=== PATIENT | male | born 1955 | race Caucasian/White ===

== ENCOUNTER 2019-03-27 08:16 | Emergency (ER) | payer SELFPAY ==
[~2019-03-27] VITALS: Ht 190.5 cm; Wt 113.4 kg
--- OUTSIDE RECORDS SUMMARY | ~2019-03-27 | XMS | Clinical Summary ---
Demographics + + + | Address | [address] | | | [place] [address] | + + + | Home Phone | | + + + | Preferred Language | Unknown | + + + | Marital Status | Unknown | + + + | Gnosticism Affiliation | Unknown | + + + | Race | Unknown | + + + | Ethnic Group | Unknown | + + + Author + + + | Author | [facility] | | | and [place] | + + + | Organization | [facility] | | | and [place] | + + + | Address | Unknown | + + + | Phone | Unavailable | + + + Care Team Providers + +------+ + | Care Software Program Manager Name | Role | Phone | + +------+ + PP | Unavailable | + +------+ + Allergies Not on File Medications Not on file Active Problems Not on file Social History + +-------+ +--------+------+ | Tobacco Use | Types | Packs/Day | Years | Date | | | | | Used | | + +-------+ +--------+------+ | Never Assessed | | | | | + +-------+ +--------+------+ + + + | Sex Assigned at [...] recent travel history available. | + + Plan of Treatment + + + + + | Health Maintenance | Due Date | Last Done | Comments | + + + + + | Vaccine: | | | | | Dtap/Tdap/Td (1 - | 3 | | | | Tdap) | | | | + + + + + | Vaccine: Zoster (1 | | | | | of 2) | 4 | | | + + + + + | Vaccine: Influenza | | | | | (Season Ended) | 9 | | | + + + + + Results Not on filefrom Last 3 Months"
--- OUTSIDE RECORDS SUMMARY | ~2019-03-27 | XMS | Clinical Summary ---
Demographics + + + | Address | [address] | | | [place] [address] | + + + | Home Phone | | + + + | Preferred Language | Unknown | + + + | Marital Status | | + + + | Alevism Affiliation | Unknown | + + + | Race | White | + + + | Ethnic Group | Not or | + + + Author + + + | Author | [facility] | + + + | Organization | [facility] | + + + | Address | Unknown | + + + | Phone | Unavailable | + + + Support + + +---------+ + | Name | Relationship | Address | Phone | + + +---------+ + | Pilar Chatterjee | ECON | Unknown | | + + +---------+ + Care Team Providers + +------+ + | Care Rug Cleaner Name | Role | Phone | + +------+ + | No Pcp Per Patient | PP | Unavailable | + +------+ + Source Comments DIANA is fully live on both [facility] and [facility] Allergies + + + + + + | Active Allergy | Reactions | Severity | Noted | Comments | | | | | Date | | + + + + + + | Penicillins | | | 05/22/20 | | | | | | 08 | | + + + + + + Medications + + + +---------+------+------+-------+ | Medication | Sig | Dispensed | Refills | Star | End | Statu | | | | | | t | Date | s | | | | | | Date | | | + + + +---------+------+------+-------+ | telmisartan | take 1 tablet (40 | | 0 | | | Activ | | (MICARDIS) 40 mg | mg) by oral route | | | | | e | | Oral Tablet | once daily | | | | | | + + + +---------+------+------+-------+ | omeprazole | 1 bid | | 0 | | | Activ | | (PRILOSEC) 20 mg | | | | | | e | | Oral Capsule, | | | | | | | | Delayed | | | | | | | | Release(E.C.) | | | | | | | + + + +---------+------+------+-------+ | ibuprofen (ADVIL) | prn | | 0 | | | Activ | | 200 mg Oral Tablet | | | | | | e | + + + +---------+------+------+-------+ | CLARITIN ORAL | daily | | 0 | | | Activ | | | | | | | | e | + + + +---------+------+------+-------+ | BENADRYL ALLERGY | prn | | 0 | | | Activ | | OR | | | | | | e | + + + +---------+------+------+-------+ | ascorbic acid SR | qd | | 0 | | | Activ | | (VITAMIN C) 1,000 mg | | | | | | e | | Oral Tablet | | | | | | | + + + +---------+------+------+-------+ | Cholecalciferol | qd | | 0 | | | Activ | | (Vitamin D3) | | | | | | e | | (VITAMIN D) 1,000 | | | | | | | | unit Oral Tablet | | | | | | | + + + +---------+------+------+-------+ | Vitamin E 1,000 | qd | | 0 | | | Activ | | unit Oral Tablet | | | | | | e | + + + +---------+------+------+-------+ | [place]-3 Fatty | qd | | 0 | | | Activ | | Acids-Vitamin E | | | | | | e | | (FISH OIL) 1,000 mg | | | | | | | | Oral Capsule | | | | | | | + + + +---------+------+------+-------+ | SUDAFED 12 HOUR | Take 120 mg by mouth | | 0 | | | Activ | | 120 mg Oral Tablet | twice daily as | | | | | e | | Sustained Release | needed for | | | | | | | | congestion. prn | | | | | | + + + +---------+------+------+-------+ Active Problems + + + | Problem | Noted Date | + + + | Benign neoplasm of thyroid gland | 05/22/2008 | + + + + + | Overview: ICD10 | + + Social History + +-------+ +--------+------+ [...] recent travel history available. | + + Last Filed Vital Signs + + + [...] | | + + + + + Plan of Treatment + + + + + | Health Maintenance | Due Date | Last Done | Comments | + + + + + | Influenza (Flu) | | | | | vaccination (Season | 9 | | | | Ended) | | | | + + + + + Results Not on filefrom Last 3 Months Advance Directives + + + + + | Type | Date Recorded | Patient | Explanation | | | | Electron Microscopist | | + + + + + | Advance | | | | | Directives and | | | | | Living Will | | | | + + + + + | Power of | | | | | Duct Maker | | | | + + + + +
--- OUTSIDE RECORDS SUMMARY | ~2019-03-27 | XMS | Encounter Summary ---
Demographics + + + | Address | [address] | | | [place] [address] | + + + | Home Phone | | + + + | Preferred Language | Unknown | + + + | Marital Status | | + + + | Muslim Affiliation | Unknown | + + + | Race | White | + + + | Ethnic Group | Not or | + + + Author + + + | Author | [facility] | + + + | Organization | [facility] | + + + | Address | Unknown | + + + | Phone | Unavailable | + + + Support + + +---------+ + | Name | Relationship | Address | Phone | + + +---------+ + | Pilar Chatterjee | ECON | Unknown | | + + +---------+ + Care Team Providers + +------+ + | Care Cable Wirer Name | Role | Phone | + [...] y | Thyroid | Cesar Soto MD [address] | | | | | nodule | [place] | [address] | | | | | | FAMILY | [facility] | | | | | | MEDICINE P | [address] [place], | | | | | | [address] | [place] | | | | | | [place], | [address] | | | | | | [place] [address] | | +--------+--------+ + + + + [...] Damon | | | | | | [facility] | | | | | | Mailcode: [address]01 | | | | | | Physician's Liz | | | | | | [place], [place] | | | | | | [address] | | | | | | [phone] | | | +--------+---------+ + + + [...] PCP. RTC as needed. Reinaldo Olivas M.D. Salesperson Men'S And Boys' Clothing, Head and Neck Surgery and Oncology [facility] Thyroid and Parathyroid Program Transcribed by: [...]
--- OUTSIDE RECORDS SUMMARY | ~2019-03-27 | XMS | Encounter Summary ---
Demographics + + + | Address | [address] | | | [place] [address] | + + + | Home Phone | | + + + | Preferred Language | Unknown | + + + | Marital Status | | + + + | Islam Affiliation | Unknown | + + + | Race | White | + + + | Ethnic Group | Not or | + + + Author + + + | Author | [facility] | + + + | Organization | [facility] | + + + | Address | Unknown | + + + | Phone | Unavailable | + + + Support + + +---------+ + | Name | Relationship | Address | Phone | + + +---------+ + | Pilar Chatterjee | ECON | Unknown | | + + +---------+ + Care Team Providers + +------+ + | Care Pump Installation And Servicer Name | Role | Phone | + [...] Damon | | | | | | [facility] | | | | | | Mailcode: [address] | | | | | | Physician's Liz | | | | | | [place], [place] | | | | | | [address] | | | | | | [phone] | | | +--------+ + + + [...] | | + +---------+ + + | [facility] DEPARTMENT OF | | | | | RADIOLOGY | | | | + +---------+ + + documented in this encounter Visit Diagnoses Not on filedocumented in this encounter"
--- OUTSIDE RECORDS SUMMARY | ~2019-03-27 | XMS | Encounter Summary ---
Demographics + + + | Address | [address] | | | [place] [address] | + + + | Home Phone | | + + + | Preferred Language | Unknown | + + + | Marital Status | | + + + | Buddhism Affiliation | Unknown | + + + | Race | White | + + + | Ethnic Group | Not or | + + + Author + + + | Author | [facility] | + + + | Organization | [facility] | + + + | Address | Unknown | + + + | Phone | Unavailable | + + + Support + + +---------+ + | Name | Relationship | Address | Phone | + + +---------+ + | Pilar Chatterjee | ECON | Unknown | | + + +---------+ + Care Team Providers + +------+ + | Care Car Starter Name | Role | Phone | + [...] | y | Thyroid | Cesar Soto, [address] | | | | | nodule | [place] | [address] | | | | | | FAMILY | [facility] | | | | | | MEDICINE P | [address] [place], | | | | | | [address] | [place] | | | | | | [place], | [address] | | | | | | [place] [address] | | +--------+--------+ + + + + [...] Damon | | | | | | [facility] | | | | | | Mailcode: [address] | | | | | | Physician's Liz | | | | | | [place] | | | | | | [address] | | | | | | [phone] | | | +--------+---------+ + + + [...] Reinaldo Olivas - 06/13/2008 9:39 PM PDT [id number] 05/22/2008 [id number] ADRI[facility] GAMINO [id number] Clinic Date: 05/22/2008 Clinic: Otolaryngology Referring Physician: [...] has 2 adult children. He works in [employer] and lives in [place]. He is an ex-smoker, quit in 1995. [...] the FNA are available. Reinaldo Olivas M.D. Chimney Mechanic, Head Dept. of Otolaryngology - Head and Neck Surgery [place] / [id number] / [id number] / [id number] / cc: * Dr. Tommie Huertas [address] [facility]. [address] [place] [address] Cesar Dixon D.O. ross, Reinaldo Jorgensen 8 11:16 AM PDTIt was a pleasure for me to see Walter Taylor in consultation today at the [facility] Thyroid and Parathyroid Clinic. The details of [...] US in 6 months. Reinaldo Olivas M.D. Chimney Mechanic, Head and Neck Surgery and Oncology [facility] Thyroid and Parathyroid Program documented in this encounte r Plan of Treatment + + +--------+ + + | Name | Type | Priori | Associated Diagnoses | Order Schedule | | | | ty | | | + + +--------+ + + | [place] LARYNGOSCOPY,FLEX | Procedures | Routin | Benign [...] + +--------+ + + + | NON SLUSHER OPERATOR CYTOLOGY | Routin | 05/22/2008 | | [...] | | + +---------+ + + | [facility] DEPARTMENT OF | | | | | RADIOLOGY | | | | + +---------+ + + NON SLUSHER OPERATOR CYTOLOGY (05/22/2008) + + + + + + | Component | Value | Ref Range | Performed | Pathologist | | | | | At | Signature | + + + + + + | NON-SLUSHER OPERATOR | SOURCE OF SPECIMEN:A | | [facility] | | | CYTOLOGY | Thyroid FNA, [...] | + + + + + | [facility] DEPARTMENT | [address] | [place] [address] | | | PATHOLOGY | LINDA FOX | | | + + + + + | [facility] DEPARTMENT OF | [address] | [place] [address] | | | PATHOLOGY | LINDA FOX | | | + + + + + documented in this encounter Visit Diagnoses + + | Diagnosis | + + | 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
--- OUTSIDE RECORDS SUMMARY | ~2019-03-27 | XMS | Encounter Summary ---
Demographics + + + | Address | [address] | | | [place] [address] | + + + | Home Phone | | + + + | Preferred Language | Unknown | + + + | Marital Status | | + + + | Mosque Affiliation | Unknown | + + + | Race | White | + + + | Ethnic Group | Not or | + + + Author + + + | Author | [facility] | + + + | Organization | [facility] | + + + | Address | Unknown | + + + | Phone | Unavailable | + + + Support + + +---------+ + | Name | Relationship | Address | Phone | + + +---------+ + | Pilar Chatterjee | ECON | Unknown | | + + +---------+ + Care Team Providers + +------+ + | Care Birth Certificate Clerk Name | Role | Phone | + +------+ + | Cesar Dixon | PCP | Unavailable | + +------+ + Reason for Visit + + + | Reason | Comments | + + + | Lab Results | Would like to know the results of biospy | + + + Encounter Details +--------+ + + + + | Date | Type | Department | Care Team | Description | +--------+ + + + + | 05/28/ | Telephone | Otolaryngology | Reinaldo Olivas MD | Lab Results (Would | | 2007 | | Head and Neck | | like to know the | | | | Surgery Services at | | results of biospy) | | | | [facility] [address] | | | | | | [facility] | | | | | | Mailcode: [address] | | | | | | Physician's Nateilitaniya | | | | | | [place], [place] | | | | | | [address] | | | | | | [phone] | | | +--------+ + + + [...] filedocumented as of this encounter Visit Diagnoses Not on filedocumented in this encounter"
--- OUTSIDE RECORDS SUMMARY | ~2019-03-27 | XMS | Encounter Summary ---
Demographics + + + | Address | [address] | | | [place] [address] | + + + | Home Phone [...] Team Providers + +------+ + | Care Leadership Program Associate Name | Role | Phone | + [...] Damon | | | | | | [facility] | | | | | | Mailcode: [address] | | | | | | Physician's Nateilitaniya | | | | | | [place], [place] | | | | | | [address] | | | | | | [phone] | | | +--------+ + + + [...]
--- OUTSIDE RECORDS SUMMARY | ~2019-03-27 | XMS | Encounter Summary ---
Demographics + + + | Address | [address] | | | [place] [address] | + + + | Home Phone | | + + + | Preferred Language | Unknown | + + + | Marital Status | | + + + | Moravian Affiliation | Unknown | + + + [...] Team Providers + +------+ + | Care Retread Mold Operator Name | Role | Phone | [...] y | Thyroid | Cesar Soto MD [address] | | | | | nodule | [place] | [address] | | | | | | FAMILY | [facility] | | | | | | MEDICINE P | [address] [place], | | | | | | [address] | [place] | | | | | | [place], | [address] | | | | | | [place] [address] | | +--------+--------+ + + + + [...] Liz | | | | | | [place], [place] | | | | | | [address] | | | | | | [phone] | | | +--------+---------+ + + + [...] PCP. RTC as needed. Reinaldo Olivas M.D. Sugar Trucker, Head and Neck Surgery and Oncology [facility] Thyroid and Parathyroid Program Transcribed by: Alexa [...]
--- OUTSIDE RECORDS SUMMARY | ~2019-03-27 | XMS | Encounter Summary ---
Demographics + + + | Address | [address] | | | [place] [address] | + + + | Home Phone | | + + + | Preferred Language | Unknown | + + + | Marital Status | | + + + | Druze Affiliation | Unknown | + + + | Race | White | + + + | Ethnic Group | Not or | + + + Author + + + | Author | [facility] | + + + | Organization | [facility] | + + + | Address | Unknown | + + + | Phone | Unavailable | + + + Support + + +---------+ + | Name | Relationship | Address | Phone | + + +---------+ + | Pilar Chatterjee | ECON | Unknown | | + + +---------+ + Care Team Providers + +------+ + | Care Certified Coding Specialist Name | Role | Phone | + +------+ + | No Pcp Per Patient | PCP | Unavailable | + +------+ + Encounter Details +--------+ + + + + | Date | Type | Department | Care Team | Description | +--------+ + + + + | 05/22/ | Document-Sc | UNKNOWN DEPARTMENT | Radiologist, | | | 2007 | anned | [address] [facility] | [facility] | | | | | [facility] | | | | | | [place], [place] | | | | | | [address] | | | +--------+ + + + [...]
--- OUTSIDE RECORDS SUMMARY | ~2019-03-27 | XMS | Encounter Summary ---
Demographics + + + | Address | [address] | | | [place] [address] | + + + | Home Phone | | + + + | Preferred Language | Unknown | + + + | Marital Status | | + + + | Zoroastrian Affiliation | Unknown | + + + [...] Team Providers + +------+ + | Care Life Science Taxonomist Name | Role | Phone | + [...] | y | Thyroid | Cesar Soto, [address] | | | | | nodule | [place] | [address] | | | | | | FAMILY | [facility] | | | | | | MEDICINE P | [address] [place], | | | | | | [address] | [place] | | | | | | [place], | [address] | | | | | | [place] [address] | | +--------+--------+ + + + + [...] Damon | | | | | | [facility] | | | | | | Mailcode: [address] | | | | | | Physician's Liz | | | | | | [place] | | | | | | [address] | | | | | | [phone] | | | +--------+---------+ + + + [...] Reinaldo Olivas - 06/13/2008 9:39 PM PDT [id number] 05/22/2008 [id number] ADRI[facility]N GAMINO [id number] Clinic Date: 05/22/2008 Clinic: Otolaryngology Referring Physician: [...] has 2 adult children. He works in [employer] and lives in [place]. He is an ex-smoker, quit in 1995. [...] the FNA are available. Reinaldo Olivas M.D. Inside Finisher, Head Dept. of Otolaryngology - Head and Neck Surgery [place] / [id number] / [id number] / [id number] / cc: * Dr. Tommie Huertas [address] [facility]. [address] [place] [address] Cesar Dixon D.O. ross, Reinaldo Jorgensen 8 11:16 AM PDTIt was a pleasure for me to see Walter Taylor in consultation today at the [facility] Thyroid and Parathyroid Clinic. The details of [...] US in 6 months. Reinaldo Olivas M.D. Inside Finisher, Head and Neck Surgery and Oncology [facility] Thyroid and Parathyroid Program documented in this encounte r Plan of Treatment + + +--------+ + + | Name | Type | Priori | Associated Diagnoses | Order Schedule | | | | ty | | | + + +--------+ + + | [place] LARYNGOSCOPY,FLEX | Procedures | Routin | Benign [...] + +--------+ + + + | NON SLAB GRINDER CYTOLOGY | Routin | 05/22/2008 | | [...] | | + +---------+ + + | [facility] DEPARTMENT OF | | | | | RADIOLOGY | | | | + +---------+ + + NON SLAB GRINDER CYTOLOGY (05/22/2008) + + + + + + | Component | Value | Ref Range | Performed | Pathologist | | | | | At | Signature | + + + + + + | NON-SLAB GRINDER | SOURCE OF SPECIMEN:A | | [facility] | | | CYTOLOGY | Thyroid FNA, [...] | + + + + + | [facility] DEPARTMENT | [address] | [place] [address] | | | PATHOLOGY | LINDA FOX | | | + + + + + | [facility] DEPARTMENT OF | [address] | [place] [address] | | | PATHOLOGY | LINDA FOX | | | + + + + + documented in this encounter Visit Diagnoses + + | Diagnosis | + + | 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
--- OUTSIDE RECORDS SUMMARY | ~2019-03-27 | XMS | Encounter Summary ---
Demographics + + + | Address | [address] | | | [place] [address] | + + + | Home Phone | | + + + | Preferred Language | Unknown | + + + | Marital Status | | + + + | Congregation Affiliation | Unknown | + + + [...] Team Providers + +------+ + | Care Washer Machine Name | Role | Phone | + [...] Damon | | | | | | [facility] | | | | | | Mailcode: PV[address] | | | | | | Physician's Liz | | | | | | [place], [place] | | | | | | [address] | | | | | | [phone] | | | +--------+ + + + [...]
--- OUTSIDE RECORDS SUMMARY | ~2019-03-27 | XMS | Clinical Summary ---
Demographics + + + | Address | [address] | | | [place] [address] | + + + | Home Phone | | + + + | Preferred Language | Unknown | + + + | Marital Status | | + + + | Catholic Affiliation | 1013 | + + + | Race | Unknown | + + + | Ethnic Group | Unknown | + + + Author + + + | Author | [facility] | + + + | Organization | [facility] | + + + | Address | Unknown | + + + | Phone | Unavailable | + + + Support + + + + + | Name | Relationship | Address | Phone | + + + + + | Aleshia Sampson | ECON | [address] | | | | | [place] | | | | | [address] | | + + + + + Care Team Providers + +------+ + | Care Orthopedic Designer Name | Role | Phone | + [...] | [facility] | [facility]DS | [id number] | | | | | | HEALTH [...] | [place] | | | [address] | [address] | + +--------+ +--------+ + +
--- OUTSIDE RECORDS SUMMARY | ~2019-03-27 | XMS | Encounter Summary ---
Demographics + + + | Address | [address] | | | [place] [address] | + + + | Home Phone | | + + + | Preferred Language | Unknown | + + + | Marital Status | | + + + | Alevism Affiliation | Unknown | + + + | Race | White | + + + | Ethnic Group | Not or | + + + Author + + + | Author | [facility] | + + + | Organization | [facility] | + + + | Address | Unknown | + + + | Phone | Unavailable | + + + Support + + +---------+ + | Name | Relationship | Address | Phone | + + +---------+ + | Pilar Chatterjee | ECON | Unknown | | + + +---------+ + Care Team Providers + +------+ + | Care Teletypesetter Name | Role | Phone | + [...] + + + + | 04/28/ | Deputy Sheriff Generalist/Bailiff | Otolaryngology | Reinaldo Olivas MD | Nontoxic Uninodular | | 2007 | | Head and Neck | | Goiter (Primary Dx) | | | | Surgery Services at | | | | | | [facility] [address] | | | | | | [facility] | | | | | | Mailcode: [address] | | | | | | [place] | | | | | | [place], [place] | | | | | | [address] | | | | | | [phone] | | | +--------+ + + + [...] | | + +---------+ + + | [facility] DEPARTMENT OF | | | | | RADIOLOGY | | | | + +---------+ + + [facility], THYROID FNA (05/22/2008 8:37 [...] | | + +---------+ + + | [facility] DEPARTMENT OF | | | | | RADIOLOGY | | | | + +---------+ + + documented in this encounter Visit Diagnoses + + | Diagnosis | + + | Nontoxic uninodular goiter - Primary | + + documented in this encounter"
--- OUTSIDE RECORDS SUMMARY | ~2019-03-27 | XMS | Encounter Summary ---
Demographics + + + | Address | [address] | | | [place] [address] | + + + | Home Phone | | + + + | Preferred Language | Unknown | + + + | Marital Status | | + + + | Oriental Orthodox Affiliation | Unknown | + + + | Race | White | + + + | Ethnic Group | Not or | + + + Author + + + | Author | [facility] | + + + | Organization | [facility] | + + + | Address | Unknown | + + + | Phone | Unavailable | + + + Support + + +---------+ + | Name | Relationship | Address | Phone | + + +---------+ + | Pilar Chatterjee | ECON | Unknown | | + + +---------+ + Care Team Providers + +------+ + | Care Receptionist Scheduler Name | Role | Phone | + +------+ + | No Pcp Per Patient | PCP | Unavailable | + +------+ + Encounter Details +--------+ + + + + | Date | Type | Department | Care Team | Description | +--------+ + + + + | 05/22/ | Document-Sc | UNKNOWN DEPARTMENT | Radiologist, | | | 2007 | anned | [address] [facility] | [facility] | | | | | [facility] | | | | | | [place], [place] | | | | | | [address] | | | +--------+ + + + [...]
--- OUTSIDE RECORDS SUMMARY | ~2019-03-27 | XMS | Clinical Summary ---
Demographics + + + | Address | [address] | | | [place] [address] | + + + | Home Phone | | + + + | Preferred Language | Unknown | + + + | Marital Status | | + + + | Orthodox Affiliation | 1013 | + + + | Race | Unknown | + + + | Ethnic Group | Unknown | + + + Author + + + | Author | [facility] | + + + | Organization | [facility] | + + + | Address | Unknown | + + + | Phone | Unavailable | + + + Support + + + + + | Name | Relationship | Address | Phone | + + + + + | Aleshia Sampson | ECON | [address] | | | | | [place] | | | | | [address] | | + + + + + Care Team Providers + +------+ + | Care Crm Developer Name | Role | Phone | + [...] | [employer] | [facility] | [id number] | | | | | | HEALTH [...] | [place] | | | [address] | [address] | + +--------+ +--------+ + +
--- OUTSIDE RECORDS SUMMARY | ~2019-03-27 | XMS | Encounter Summary ---
Demographics + + + | Address | [address] | | | [place] [address] | + + + | Home Phone | | + + + | Preferred Language | Unknown | + + + | Marital Status | | + + + | Zoroastrianism Affiliation | Unknown | + + + | Race | White | + + + | Ethnic Group | Not or | + + + Author + + + | Author | [facility] | + + + | Organization | [facility] | + + + | Address | Unknown | + + + | Phone | Unavailable | + + + Support + + +---------+ + | Name | Relationship | Address | Phone | + + +---------+ + | Pilar Chatterjee | ECON | Unknown | | + + +---------+ + Care Team Providers + +------+ + | Care Vendor Analyst Name | Role | Phone | [...] + + + + | 04/28/ | Customer Service Advisor | Otolaryngology | Reinaldo Olivas MD | Nontoxic Uninodular | | 2007 | | Head and Neck | | Goiter (Primary Dx) | | | | Surgery Services at | | | | | | [facility] [address] | | | | | | [facility] | | | | | | Mailcode: PV01 | | | | | | [place] | | | | | | [place], [place] | | | | | | [address] | | | | | | [phone] | | | +--------+ + + + [...] | | + +---------+ + + | [facility] DEPARTMENT OF | | | | [...] | | + +---------+ + + | [facility] DEPARTMENT OF | | | | | RADIOLOGY | | | | + +---------+ + + documented in this encounter Visit Diagnoses + + | Diagnosis | + + | Nontoxic uninodular goiter - Primary | + + documented in this encounter"
--- OUTSIDE RECORDS SUMMARY | ~2019-03-27 | XMS | Clinical Summary ---
Demographics + + + | Address | [address] | | | [place] [address] | + + + | Home Phone | | + + + | Preferred Language | Unknown | + + + | Marital Status | | + + + | Church Affiliation | Unknown | + + + [...] Team Providers + +------+ + | Care Soaking Tank Worker Name | Role | Phone | + +------+ + | No Pcp Per Patient | PP | Unavailable | + +------+ + Source Comments DIANA is fully live on both [facility] and [facility] InPatient.[facility] Allergies + + + + + + [...] e | + + + +---------+------+------+-------+ | [place]-3 Fatty | qd | | 0 | [...] Patient | 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
--- OUTSIDE RECORDS SUMMARY | ~2019-03-27 | XMS | Clinical Summary ---
Demographics + + + | Address | [address] | | | [place] [address] | + + + | Home Phone | | + + + | Preferred Language | Unknown | + + + | Marital Status | Unknown | + + + | Muslim Affiliation | Unknown | + + + | Race | Unknown | + + + | Ethnic Group | Unknown | + + + Author + + + | Author | [facility] | | | and [place] | + + + | Organization | [facility] | | | and [place] | + + + | Address | Unknown | + + + | Phone | Unavailable | + + + Care Team Providers + +------+ + | Care Filtration Plant Operator Name | Role | Phone | [...]
[~2019-03-27 08:16] MED LIST: AMPHETAMINE SAL20 MG PO; ASPIR-TRIN325 MG PO; BACTRIM DS TAB1 EACH PO; CLARITIN-D 121 EACH PO; FISH OIL 1,0001 EAC2 NG; IBUPROFEN200 MG PO; KEFLEX500 MG PO; NORCO 5-325 TA1 EACH PO; PROMETH-CODEIN 65 ML PO; TESSALON PERLE100 MG PO; VITAMIN D5000 UNIT PO
--- OUTSIDE RECORDS SUMMARY | 2019-03-27 08:20 | XMS ---
PreManage Notification: HANNY SAMPSON Security Spring Repairer Helper Hand Events No recent Security Events currently on file CRITERIA MET - PDMP CARE PROVIDERS Damion Ling Current PHONE: Unknown Paula has no Care Guidelines for this patient. ECherelle VISIT COUNT (12 MO.) 1 LALO Taylor TOTAL 1 NOTE: Visits indicate total known visits. ED/UCC VISIT TRACKING (12 MO.) 03/27/2019 08:17 [place] TYPE: Emergency COMPLAINT: - ABDOMINAL PAIN INPATIENT VISIT TRACKING (12 MO.) No inpatient visits to display in this time frame [id number]
[2019-03-27] MEDS ORDERED: MAGNESIUM CITR296 ML PO (09:44)
== END 2019-03-27 09:53 | disposition home or self-care (01) ==
LOC: ED 08:16
DX: K59.00 Constipation, unspecified (principal); F43.10 Post-traumatic stress disorder, unspecified; Z87.891 Personal history of nicotine dependence; Z88.0 Allergy status to penicillin; Z79.899 Other long term (current) drug therapy
CPT/HCPCS: 74019; 99283

== ENCOUNTER 2019-03-29 20:30 | Inpatient (IN) | payer SELFPAY ==
[~2019-03-29] VITALS: Ht 190.5 cm; Wt 109.0 kg
--- NOTE | ~2019-03-29 | DS ---
[facility] [address], [place] [address] Draft ADMISSION DATE: 03/30/2019 DISCHARGE DATE: 04/02/2019 REASON FOR ADMISSION: This 63-year-old white man had been admitted for diverticulitis with a peridiverticular fluid collection suggestive of abscess. HISTORY: This 63-year-old white man had two weeks of lower abdominal pain, worsening and with increasingly poor oral intake. He presented to Dr. Wang, his primary physician who had him undergo CBC. This showed an elevated white count of 15.1. He had a CT scan of the abdomen after presentation in the emergency room, which showed a severely inflamed rectosigmoid area, likely related to perforated diverticulitis, which was contained. He was admitted for further evaluation and care. PERTINENT PHYSICAL EXAMINATION: GENERAL: Shows a large tall white man, noted to be in [id number] discomfort. HEENT: Mucous membranes are dry. CHEST: Clear. HEART: Regular without murmur. ABDOMEN: Slightly distended, but generally soft. He does not have generalized peritonitis. There is mild tenderness in the lower abdomen. LABORATORY DATA: White count was 15.1, hematocrit 44.4, platelets 195,000. Chem profile normal. Liver enzymes normal. Urinalysis normal. His influenza test was normal. HOSPITAL COURSE: Review of his CT scan showed a diverticular fluid collection suggestive of abscess. As it was small, less than 6 cm in greatest dimension, a trial of antibiotic therapy was initiated. This included broad-spectrum antibiotic meropenem. He had rather prompt recovery with maintaining n.p.o., IV fluids, antibiotics and parenteral pain medication. He was advanced to a liquid diet, a full diet, and ultimately a low-fiber regular diet, which he has tolerated well. At this point, palpation shows no sign of tenderness. He has no fever, no chills. It is anticipated, he will be discharged home with a week of Cipro and Flagyl antibiotic, which he was transitioned to while in the hospital. He will maintain a low-fiber diet as well. PATIENT NAME: HANNY SAMPSON DISCHARGE SUMMARY DATE OF : 53 REPORT #: [id number] PHYSICIAN: GERONIMO RAM MD PCP: AVA WANG MD REPORT IS CONFIDENTIAL AND NOT TO BE RELEASED WITHOUT AUTHORIZATION [facility] [address] [place], [place] [address] Draft We will see him back in about a month. In due course, he will require consideration for repeat CT scan to assess complete resolution of the peridiverticular fluid collection as well as consideration of colonoscopy. In his circumstance, a sigmoid resection may be advisable given the extent of his diverticular disease now manifesting as peridiverticular abscess. We will discuss this further in the future. DISCHARGE DIAGNOSES: 1. Severe acute diverticulitis with peridiverticular fluid collection, probable abscess. 2. Seasonal allergies. FOLLOWUP PLAN: He will return in approximately a week. He will follow up with Dr. Wang on a routine basis. DISCHARGE MEDICATIONS: 1. Ciprofloxacin 500 mg p.o. b.i.d. #14. 2. Flagyl 250 mg p.o. t.i.d. #21. 3. Loratadine, Claritin-D 1 tab as needed for allergy symptoms. 4. Tylenol 325 mg two tablets p.o. q.6 hours as needed for pain. He will resume his usual 5000 units of vitamin D tablet daily. MD JERED Siddiqui/MODL /[id number] cc: MD Mahad Camahco MD Copies: AVA WANG MD PATIENT NAME: HANNY SAMPSON DISCHARGE SUMMARY DATE OF : 53 REPORT #: [id number] PHYSICIAN: GERONIMO RAM MD PCP: AVA WANG MD REPORT IS CONFIDENTIAL AND NOT TO BE RELEASED WITHOUT AUTHORIZATION [facility] [address] [place] [address] Draft MAHAD CONLEY MD ~ PATIENT NAME: HANNY SAMPSON DISCHARGE SUMMARY DATE OF : 53 REPORT #: [id number] PHYSICIAN: GERONIMO RAM MD PCP: AVA WANG MD REPORT IS CONFIDENTIAL AND NOT TO BE RELEASED WITHOUT AUTHORIZATION
--- OUTSIDE RECORDS SUMMARY | ~2019-03-29 | XMS | Encounter Summary ---
Demographics + + + | Address | [address] | | | [place] [address] | + + + | Home Phone | | + + + | Preferred Language | Unknown | + + + | Marital Status | | + + + | Roman Catholic Affiliation | Unknown | + + + | Race | White | + + + | Ethnic Group | Not or | + + + Author + + + | Author | [facility] | + + + | Organization | [facility] | + + + | Address | Unknown | + + + | Phone | Unavailable | + + + Support + + +---------+ + | Name | Relationship | Address | Phone | + + +---------+ + | Pilar Chatterjee | ECON | Unknown | | + + +---------+ + Care Team Providers + +------+ + | Care Swimming Pool Service Technician Name | Role | Phone | + +------+ + | Cesar Dixon | PCP | Unavailable | + +------+ + Reason for Visit + + + | Reason | Comments | + + + | New patient | thyroid | | consultation | | + + + Consultation (Routine) +--------+--------+ + + + + | Status | Reason | Specialty | Diagnoses / | Referred By | Referred To | | | | | Procedures | Contact | Contact | +--------+--------+ + + + + | Closed | | Otolaryngolog | Diagnoses | Zack, | Reinaldo Olivas | | | | y | Thyroid | Cesar Soto, [address] | | | | | nodule | [place] | [address] | | | | | | FAMILY | [facility] | | | | | | MEDICINE [address] | [address] [place], | | | | | | [address] | [place] | | | | | | [place], | [address] | | | | | | [place] [address] | | +--------+--------+ + + + + Encounter Details +--------+---------+ + + + | Date | Type | Department | Care Team | Description | +--------+---------+ + + + | 05/22/ | Office | Otolaryngology | Reinaldo Olivas MD | Benign Neoplasm of | | 2007 | Visit | Head and Neck | | Thyroid Glands | | | | Surgery Services at | | (Primary Dx) | | | | [facility] [address] | | | | | | [facility] | | | | | | Mailcode: [address] | | | | | | Physician's Liz | | | | | | [place] | | | | | | [address] | | | | | | [phone] | | | +--------+---------+ + + + Social History + +-------+ +--------+------+ | Tobacco Use | Types | Packs/Day | Years | Date | | | | | Used | | + +-------+ +--------+------+ | Former Smoker | | | | | + +-------+ +--------+------+ + + | Comments: 1996 | + + + + +---------+ + | Alcohol Use | Drinks/Week | oz/Week | Comments | + + +---------+ + | Yes | | | | + + +---------+ + + + + | Sex Assigned at | Date Recorded | | | | + + + | Not on file | | + + + + + + + | Job Start Date | Occupation | Industry | + + + + | Not on file | Not on file | Not on file | + + + + + + + + | Travel History | Travel Start | Travel End | + + + + + + | No recent travel history available. | + + documented as of this encounter Last Filed Vital Signs + + + + + | Vital Sign | Reading | Time Taken | Comments | + + + + + | Blood Pressure | - | - | | + + + + + | Pulse | - | - | | + + + + + | Temperature | - | - | | + + + + + | Respiratory Rate | - | - | | + + + + + | Oxygen Saturation | - | - | | + + + + + | Inhaled Oxygen | - | - | | | Concentration | | | | + + + + + | Weight | 115.7 kg (255 lb) | 05/22/2008 10:20 AM | | | | | PDT | | + + + + + | Height | 190.5 cm (6' 3") | 05/22/2008 10:20 AM | | | | | PDT | | + + + + + | Body Mass Index | 31.87 | 05/22/2008 10:20 AM | | | | | PDT | | + + + + + documented in this encounter Progress Notes Reinaldo Olivas - 06/13/2008 9:39 PM PDT [id number] 05/22/2008 [id number] ADRIÁN GAMINO [id number] Clinic Date: 05/22/2008 Clinic: Otolaryngology Referring Physician: Cesar Dixon D.O. NEW PATIENT CONSULT NOTE Chief Complaint: Thyroid nodule. History of Present Illness: Mr. Taylor is a 52-year-old gentleman with a history of gastroesophageal reflux disease and seasonal allergies with chronic sinusitis who comes in for evaluation of an incidentally identified left-sided thyroid nodule. The patient was being followed by a general surgeon who palpated a thyroid nodule during a routine examination for followup of gastroesophageal reflux disease. This prompted an ultrasound examination which identified a right-sided 1.7 cm nodule. Smaller 5 mm nodules were noted on the left-hand side. Subsequent CT scan was performed and confirmed the presence and identified the nodule on the left-hand side. Addendum: Ultrasound report indeed confirmed that the nodule is on the left. The patient has otherwise been asymptomatic. He denies any dysphagia or odynophagia. He has had no changes in his voice. He has had no weight loss and denies any other signs or stigmata of hyper or hypothyroidism. Thyroid function studies were tested and were within the normal range. He was advised hemithyroidectomy and possible total thyroidectomy depending on frozen section results but comes here to discuss further his options. There is no family history of endocrinopathy or thyroid cancer. He denies any family history of head and neck cancer. He denies any personal exposure to radiation. Past Medical History: Significant for gastroesophageal reflux disease, hypertension, seasonal allergies, and sleep apnea. Past Surgical History: Appendectomy, carpal tunnel surgery, and tonsillectomy. Current Medications: Listed on new patient intake form in the electronic medical record and were reviewed. Allergies: HE REPORTS A SENSITIVITY TO PENICILLIN. Social: The patient is . He has 2 adult children. He works in [employer] and lives in [place]. He is an ex-smoker, quit in 1995. He drinks alcoholic beverages socially on occasion. He is active and has no functional limitations. Family History: Positive for asthma and a goiter but negative for thyroid cancer or other head and neck cancer. Review of Systems: Reviewed on the new patient intake questionnaire form and was positive for cough, snoring, daytime sleepiness, neck stiffness, hearing loss, and nasal congestion. Physical Examination: Vital Signs: Recorded on the new patient intake form and were reviewed. His weight is 255 pounds. General: He is pleasant, conversant, nontoxic appearing. The patient's scalp reveals no asymmetries nor suspicious cutaneous lesions. Parotids are symmetric. Facial nerve mobility is normal. Eyes: No chemosis. No proptosis. Pupils are equal and reactive. Extraocular movements are intact. Nose: No external nasal deformity. No mucosal lesions, polyps, or masses. Mouth: No buccal, lingual, or gingival lesions. Posterior oropharynx is clear. Teeth are in good condition. Neck: No adenopathy, thyromegaly, or masses. I am unable to palpate thyroid nodule. Ears: External canals and pinnae are unremarkable. Cranial Nerve exam 2 through 12 is intact. Procedure: Nasopharyngoscopy was performed after the administration of topical lidocaine and Afrin nasal spray. The posterior nasopharynx, hypopharynx, and larynx were well visualized. Vocal cords were symmetric and moved equally. No glottic or supraglottic lesions appreciated. Ancillary Studies: The patient brings with him today a CT scan of the neck. The hard copy images are available for my review. This study was performed 04/11/2008. On my interpretation of the study, there is a 1.5 cm heterogeneous-appearing nodule in the left posterior portion of the thyroid. There are no internal calcifications identified. There are no other thyroid masses and no cervical adenopathy identified. The remainder of the examination is unremarkable. The patient did undergo today ultrasound-guided fine-needle aspirate biopsy. The results of this are pending. Impression: Left-sided thyroid nodule. Statistically, this is likely benign. He did undergo today an ultrasound-guided fine-needle aspirate biopsy to confirm this. I had a lengthy discussion today with the patient and his sister regarding my findings and recommendations. I have recommended if it indeed is benign, serial observation with ultrasound in 6 months and again in 1 year. If it is suspicious or malignant, then I would recommend further more aggressive workup or management. I will call the patient when the results of the FNA are available. Reinaldo Olivas M.D. Wax Pattern Repairer, Head Dept. of Otolaryngology - Head and Neck Surgery [place] / [id number] / [id number] / [id number] / cc: * Dr. Tommie Huertas [address] [facility] [place] [address] Cesar Dixon D.O. ross, Reinaldo Jorgensen 8 11:16 AM PDTIt was a pleasure for me to see Walter Taylor in consultation today at the [facility]. The details of my findings and recommendat ions are summarized in a separately dictated note. In brief, he appears to have a left-side d thyroid nodule. I have advised US-guided FNA which is scheduled for later today. I will call him with the results to discuss further management as needed. We will tenatively sched kendal follow-up US in 6 months. Reinaldo Olivas M.D. Wax Pattern Repairer, Head and Neck Surgery and Oncology [facility] Thyroid and Parathyroid Program documented in this encounte r Plan of Treatment + + +--------+ + + | Name | Type | Priori | Associated Diagnoses | Order Schedule | | | | ty | | | + + +--------+ + + | FL LARYNGOSCOPY,FLEX | Procedures | Routin | Benign Neoplasm of | Ordered: 05/22/2008 | | FIBER,DIAGNOSTIC | | e | Thyroid Glands | | + + +--------+ + + documented as of this encounter Procedures + +--------+ + + + | Procedure Name | Priori | Date/Time | Associated Diagnosis | Comments | | | ty | | | | + +--------+ + + + | US SOFT TISSUE HEAD | Routin | 12/16/2008 | Benign Neoplasm of | Results for this | | & NECK | e | 10:49 AM | Thyroid Glands | procedure are in the | | | | PST | | results section. | + +--------+ + + + | NON BOARD LAYER CYTOLOGY | Routin | 05/22/2008 | | Results for this | | | e | | | procedure are in the | | | | | | results section. | + +--------+ + + + documented in this encounter Results US SOFT TISSUE HEAD & NECK (12/16/2008 10:49 AM PST) + + + + + + | Component | Value | Ref Range | Performed | Pathologist | | | | | At | Signature | + + + + + + | US SOFT | NECK SOFT TISSUE | | | | | TISSUE HEAD | ULTRASONOGRAPHYCOMPARISO | | | | | & NECK | N: 05/22/08.CLINICAL | | | | | | HISTORY/INDICATION(S): | | | | | | Follow-up thyroid | | | | | | nodule:TECHNIQUE: | | | | | | Ultrasonography of the | | | | | | neck soft tissues was | | | | | | performed.FINDINGS: | | | | | | The thyroid is unchanged | | | | | | in appearance compared | | | | | | to priorimaging. The | | | | | | previously described | | | | | | left inferior thyroid | | | | | | nodule isagain | | | | | | demonstrated measuring | | | | | | 1.4 x 1.1 x 1.4 cm, | | | | | | previously 1.6 x 1.3x | | | | | | 1.3 centimeters. The | | | | | | inferior right thyroid | | | | | | nodule is measuring0.5 x | | | | | | 0.2 x 0.7 cm, | | | | | | previously 0.3 x 0.2 x | | | | | | 0.3 cm. however, the | | | | | | 0.7cm measurement may | | | | | | not be accurate | | | | | | (measured larger than | | | | | | actualnodule) given the | | | | | | images obtained.. The | | | | | | right lobe of the | | | | | | thyroidmeasures 1.8 x | | | | | | 1.2 x 5.3 cm, the left | | | | | | lobe measures 1.8 x 1.5 | | | | | | x 5.4.Bilateral normal | | | | | | appearing nonenlarged | | | | | | lymph nodes are | | | | | | present.IMPRESSION:1. | | | | | | Stable appearing | | | | | | bilateral thyroid with | | | | | | nodules.I have | | | | | | personally viewed this | | | | | | procedure/exam and | | | | | | reviewed this | | | | | | report.Author: | | | | | | ZULEIKA,Reviewer: | | | | | | MARYLIN BENNETT M.D.STATUS | | | | | | FINAL / Dr. MARYLIN BENNETT | | | | + + + + + + + + | Specimen | + + | | + + + +---------+ + + | Performing | Address | City/State/Zipcode | Phone Number | | Organization | | | | + +---------+ + + | [facility] DEPARTMENT OF | | | | | RADIOLOGY | | | | + +---------+ + + NON BOARD LAYER CYTOLOGY (05/22/2008) + + + + + + | Component | Value | Ref Range | Performed | Pathologist | | | | | At | Signature | + + + + + + | NON-BOARD LAYER | SOURCE OF SPECIMEN:A | | [facility] | | | CYTOLOGY | Thyroid FNA, done by | | DEPARTMENT | | | | clinician with | | OF | | | | adequacyassessmentGROSS | | PATHOLOGY | | | | DESCRIPTION:CLINICAL | | | | | | HISTORY:Clinical | | | | | | History:52 yo male; | | | | | | incidentally found | | | | | | thyroid nodule; U/S | | | | | | reveals 1.6 | | | | | | cmhypo-vascular nodule | | | | | | in the inferior left | | | | | | pole [DS].Procedure: | | | | | | U/Sg FNA yielded | | | | | | SurePath slide, 3 | | | | | | air-dried and 5 fixed | | | | | | slides.Final Cytologic | | | | | | Diagnosis:A. Left | | | | | | inferior lobe, FNA:- | | | | | | Benign thyroid lesion- | | | | | | Please see | | | | | | commentComment: The | | | | | | aspirate slides are | | | | | | sparsely cellular and | | | | | | reveal | | | | | | cytologicallybland | | | | | | follicular epithelium in | | | | | | a background of | | | | | | abundant thin, | | | | | | waterycolloid | | | | | | material. Degenerativ | | | | | | e/cystic changes are not | | | | | | | | | | | | present. Classiccytol | | | | | | ogic findings of | | | | | | papillary thyroid | | | | | | carcinoma are not | | | | | | present. Thefindings | | | | | | are most consistent with | | | | | | a benign, | | | | | | non-neoplastic | | | | | | follicularlesion such as | | | | | | a colloid | | | | | | nodule.Immediate | | | | | | Impression: sparse, | | | | | | colloid.Case reviewed | | | | | | by:Walter Soto, | | | | | | MD/Staff PathologistThe | | | | | | diagnosis is based on | | | | | | gross and microscopic | | | | | | examinations. It was | | | | | | madeby the attending | | | | | | pathologist after review | | | | | | of all microscopic | | | | | | slides.Rendering | | | | | | Diagnostician: Walter | | | | | | Brittany | | | | | | RiveraPathologistElectroni | | | | | | graciela Signed 05/26/2008 | | | | + + + + + + + + | Specimen | + + | Other | + + + + + + + | Performing | Address | City/State/Zipcode | Phone Number | | Organization | | | | + + + + + | [facility] DEPARTMENT | [address] | [place] [address] | | | PATHOLOGY | LINDA FOX | | | + + + + + | [facility] DEPARTMENT OF | [address] | [place] [address] | | | PATHOLOGY | LINDA FOX | | | + + + + + documented in this encounter Visit Diagnoses + + | Diagnosis | + + | 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
--- OUTSIDE RECORDS SUMMARY | ~2019-03-29 | XMS | Encounter Summary ---
Demographics + + + | Address | [address] | | | [place] [address] | + + + | Home Phone | | + + + | Preferred Language | Unknown | + + + | Marital Status | | + + + | Advent Affiliation | Unknown | + + + | Race | White | + + + | Ethnic Group | Not or | + + + Author + + + | Author | [facility] | + + + | Organization | [facility] | + + + | Address | Unknown | + + + | Phone | Unavailable | + + + Support + + +---------+ + | Name | Relationship | Address | Phone | + + +---------+ + | Pilar Chatterjee | ECON | Unknown | | + + +---------+ + Care Team Providers + +------+ + | Care Farm Equipment Technician Name | Role | Phone | + +------+ + | No Pcp Per Patient | PCP | Unavailable | + +------+ + Reason for Visit + + + | Reason | Comments | + + + | Follow-up encounter | | + + + Consultation (Routine) [...] | | y | Thyroid | Cesar Soto MD [address] | | | | | nodule | [place] | [address] | | | | | | FAMILY | [facility] | | | | | | MEDICINE [address] | [address] [place], | | | | | | [address] | [place] | | | | | | [place], | [address] | | | | | | [place] [address] | | +--------+--------+ + + + + Encounter Details +--------+---------+ + + + | Date | Type | Department | Care Team | Description | +--------+---------+ + + + | 12/16/ | Office | Otolaryngology | Reinaldo Olivas MD | Benign Neoplasm of | | 2008 | Visit | Head and Neck | | Thyroid Glands | | | | Surgery Services at | | (Primary Dx) | | | | [facility] [address] | | | | | | [facility] | | | | | | Mailcode: [address] | | | | | | Physician's [address] | | | | | | [place], [place] | | | | | | [address] | | | | | | [phone] | | | +--------+---------+ + + + [...] + + + | Blood Pressure | 148/82 | 12/16/2008 12:30 PM | | | | | PST | | + + + + + [...] + + + + | Weight | 121.6 kg (268 lb) | 12/16/2008 12:30 PM | | | | | PST | | + + + + + | Height | - | - | | + + + + + | Body Mass Index | 33.5 | 05/22/2008 10:20 AM | | | | | PDT | | + + + + + documented in this encounter Progress Notes Reinaldo Olivas MD - 12/22/2008 11:17 PM PSTHead and Neck Surgery Follow-Up Note History of benign thyroid nodule identified 05/13. Previous US 05/13 showed "1.6 x 1.3 x 1. 3 cm hypoechoic, hypovascular nodule in the inferior pole of the left lobe of the thyroid an d a 0.3 x 0.2 x 0.3 cm hypoechoic nodule is seen in the inferior pole of the right lobe of t he thyroid. Underwent FNA 05/13 bx results benign. Here today for 6 mo follow-up exam and re peat US evaluation. S: No symptoms of hyper or hypothyroidism. No noticeable masses to the patient, he also de nies new otalgia, dysphagia, odynophagia, hemoptysis, or hoarseness. He notes frequent sinus drainage and used OTC decongestants and allergy medications to treat. Has intermittantly t aken abx for sinus infections. No acute worsening of this issue. diet- normal weight-unchanged tobacco- non-currently past hx + O: Blood pressure 148/82, weight 121.564 kg (268 lb). Gen- comfortable, nontoxic Speech regular Face- no asymmetry, no suspicious cutaneous lesions facial mobility normal Eyes- pupils equal and reactive, EOMI; no chemosis, proptosis Nose- no mucosal lesions Mouth- no buccal, lingual or gingival lesions posterior o/p is clear Neck- no adenopathy, thyromegaly or masses. minimally palpable thyroid, no nodules on pal pation. UUS SOFT TISSUE HEAD & NECK: NECK SOFT TISSUE ULTRASONOGRAPHY COMPARISON: 05/22/08. CLINICAL HISTORY/INDICATION(S): Follow-up thyroid nodule: TECHNIQUE: Ultrasonography of the neck soft tissues was performed. FINDINGS: The thyroid is unchanged in appearance compared to prior imaging. The previously described left inferior thyroid nodule is again demonstrated measuring 1.4 x 1.1 x 1.4 cm, previously 1.6 x 1.3 x 1.3 centimeters. The inferior right thyroid nodule is measuring 0.5 x 0.2 x 0.7 cm, previously 0.3 x 0.2 x 0.3 cm. however, the 0.7 cm measurement may not be accurate (measured larger than actual nodule) given the images obtained.. The right lobe of the thyroid measures 1.8 x 1.2 x 5.3 cm, the left lobe measures 1.8 x 1.5 x 5.4. Bilateral normal appearing nonenlarged lymph nodes are present. IMPRESSION: 1. Stable appearing bilateral thyroid with nodules. A: Stable with history benign thyroid nodule. No evidence of enlargement today. US results from today show no change in size. P: Recommend yearly clinical FU with PCP. RTC as needed. Reinaldo Olivas M.D. Cycle Repairer, Head and Neck Surgery and Oncology [facility] Thyroid and Parathyroid Program Transcribed by: Alexa Connors, MS4 Medical Student I spent over 15 minutes with Walter Taylor today in clinic. More than half of the visit was s pent discussing the diagnosis, treatment options and prognosis. 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
--- OUTSIDE RECORDS SUMMARY | ~2019-03-29 | XMS | Encounter Summary ---
Demographics + + + | Address | [address] | | | [place] [address] | + + + | Home Phone | | + + + | Preferred Language | Unknown | + + + | Marital Status | | + + + | Catholic Affiliation | Unknown | + + + | Race | White | + + + | Ethnic Group | Not or | + + + Author + + + | Author | [facility] | + + + | Organization | [facility] | + + + | Address | Unknown | + + + | Phone | Unavailable | + + + Support + + +---------+ + | Name | Relationship | Address | Phone | + + +---------+ + | Pilar Chatterjee | ECON | Unknown | | + + +---------+ + Care Team Providers + +------+ + | Care Photographic Artist Name | Role | Phone | + +------+ + | Cesar Dixon | PCP | Unavailable | + +------+ + Encounter Details +--------+ + + + + | Date | Type | Department | Care Team | Description | +--------+ + + + + | 05/22/ | Results | Otolaryngology | Reinaldo Olivas MD | | | 2007 | Only | Head and Neck | | | | | | Surgery Services at | | | | | | [facility] [address] | | | | | | [facility] | | | | | | Mailcode: [address] | | | | | | Physician's Liz | | | | | | [place], [place] | | | | | | [address] | | | | | | [phone] | | | +--------+ + + + + Social History + +-------+ [...] + + documented as of this encounter Plan of Treatment Not on filedocumented as of this encounter Procedures + +--------+ + + + | Procedure Name | Priori | Date/Time | Associated Diagnosis | Comments | | | ty | | | | + +--------+ + + + | US THY CLINIC, NECK | Routin | 05/22/2008 | | Results for this | | THYROID | e | 8:37 AM | | procedure are in the | | | | PDT | | results section. | + +--------+ + + + documented in this encounter Results US THY CLINIC, NECK THYROID (05/22/2008 8:37 AM PDT) + + + + + + | Component | Value | Ref Range | Performed | Pathologist | | | | | At | Signature | + + + + + + | US THY | Indication: Thyroid | | | | | CLINIC, | nodule.COMPARISON: | | | | | NECK | noneFINDINGS: The right | | | | | THYROID | thyroid lobe measures | | | | | | 4.1 x 1.6 x | | | | | | 1.1cm. Theleft | | | | | | thyroid lobe measures | | | | | | 4.1 x 1.5 x 1.2cm. There | | | | | | is a 1.6 x 1.3 x1.3 cm | | | | | | hypoechoic, hypovascular | | | | | | nodule in the inferior | | | | | | pole of theleft lobe of | | | | | | the thyroid. A 0.3 x | | | | | | 0.2 x 0.3 cm hypoechoic | | | | | | nodule isseen in the | | | | | | inferior pole of the | | | | | | right lobe of the | | | | | | thyroid.No suspicious | | | | | | cervical | | | | | | lymphadenopathy.TECHNIQU | | | | | | E: After an informed | | | | | | and written signed | | | | | | consent was obtainedfrom | | | | | | the patient, the | | | | | | patient's neck was | | | | | | prepped and draped in | | | | | | usualsterile | | | | | | fashion. Local | | | | | | anesthesia was achieved | | | | | | with several cc | | | | | | ofbuffered lidocaine. 4 | | | | | | passes were made through | | | | | | the left lobe | | | | | | nodulewith a 25G needle | | | | | | under direct sonographic | | | | | | | | | | | | visualization. Thepat | | | | | | ient tolerated the | | | | | | procedure well, and | | | | | | there were no | | | | | | immediatecomplications. | | | | | | Pathology was present | | | | | | to confirm adequacy of | | | | | | thespecimen.IMPRESSION:1 | | | | | | . Successful FNA of the | | | | | | nodule within the lower | | | | | | pole of the leftlobe of | | | | | | the thyroid.I have | | | | | | personally viewed this | | | | | | procedure/exam and | | | | | | reviewed this | | | | | | report.STATUS FINAL / | | | | | | Dr. EVELIN BRANTLEY | | | | + + + [...] | | | + +---------+ + + documented in this encounter Visit Diagnoses Not on filedocumented in this encounter"
--- OUTSIDE RECORDS SUMMARY | ~2019-03-29 | XMS | Encounter Summary ---
Demographics + + + | Address | [address] | | | [place] [address] | + + + | Home Phone | | + + + | Preferred Language | Unknown | + + + | Marital Status | | + + + | Druze Affiliation | Unknown | + + + | Race | White | + + + | Ethnic Group | Not or | + + + Author + + + | Author | [facility] | + + + | Organization | [facility] | + + + | Address | Unknown | + + + | Phone | Unavailable | + + + Support + + +---------+ + | Name | Relationship | Address | Phone | + + +---------+ + | Pilar Chatterjee | ECON | Unknown | | + + +---------+ + Care Team Providers + +------+ + | Care Job Placement Officer Name | Role | Phone | + [...] [address] | | | | | | [facility] | | | | | | Mailcode: [address] | | | | | | Physician's Liz | | | | | | [place], [place] | | | | | | [address] | | | | | | [phone] | | | +--------+ + + + [...] | | + +---------+ + + | [facility] DEPARTMENT OF | | | | | RADIOLOGY | | | | + +---------+ + + documented in this encounter Visit Diagnoses Not on filedocumented in this encounter"
--- OUTSIDE RECORDS SUMMARY | ~2019-03-29 | XMS | Clinical Summary ---
Demographics + + + | Address | [address] | | | [place] [address] | + + + | Home Phone | | + + + | Preferred Language | Unknown | + + + | Marital Status | | + + + | Latter-Day Affiliation | Unknown | + + + [...] Team Providers + +------+ + | Care Insurance Follow Up Representative Name | Role | Phone | + +------+ + | No Pcp Per Patient | PP | Unavailable | + +------+ + Source Comments DIANA is fully live on both [facility] Ambulatory and [facility] InPatient.[facility] Allergies + + + + + [...] e | + + + +---------+------+------+-------+ | Roland-3 Fatty | qd | | 0 | [...] Patient | Explanation | | | | Company Manager | | + + + + + | Advance | | | | | Directives and | | | | | Living Will | | | | + + + + + | Power of | | | | | Veterans Adviser | | | | + + + + +
--- OUTSIDE RECORDS SUMMARY | ~2019-03-29 | XMS | Encounter Summary ---
Demographics + + + | Address | [address] | | | [place] [address] | + + + | Home Phone | | + + + | Preferred Language | Unknown | + + + | Marital Status | | + + + | Uatsdin Affiliation | Unknown | + + + | Race | White | + + + | Ethnic Group | Not or | + + + Author + + + | Author | [facility] | + + + | Organization | [facility] | + + + | Address | Unknown | + + + | Phone | Unavailable | + + + Support + + +---------+ + | Name | Relationship | Address | Phone | + + +---------+ + | Pilar Chatterjee | ECON | Unknown | | + + +---------+ + Care Team Providers + +------+ + | Care Rd Manager Name | Role | Phone | [...] | y | Thyroid | [address] | | | | | nodule | [place] | [address] | | | | | | FAMILY | [address] | | | | | | MEDICINE P | [address], | | | | | | [address] | [place] | | | | | | [place], | [address] | | | | | | [place] [address] | | +--------+--------+ + + + + [...] Dam[address] | | | | | | [facility] | | | | | | Mailcode: [address] | | | | | | Physician's Liz | | | | | | [place] | | | | | | [address] | | | | | | [phone] | | | +--------+---------+ + + + [...] Reinaldo Olivas - 06/13/2008 9:39 PM PDT [id number] 05/22/2008 [id number] [place] [place]AM[place] [id number] Clinic Date: 05/22/2008 Clinic: Otolaryngology Referring Physician: [...] has 2 adult children. He works in [employer] and lives in [place]. He is an ex-smoker, quit in 1995. [...] the FNA are available. Reinaldo Olivas M.D. Aboriginal Education Worker Coordinator, Head Dept. of Otolaryngology - Head and Neck Surgery [place] / [id number] / [id number] / [id number] / cc: * Dr. Tommie Huertas [address] [facility] [place] [address] Cesar Dixon D.O. ross, Reinaldo Jorgensen 8 11:16 AM PDTIt was a pleasure for me to see Walter Taylor in consultation today at the [facility] Thyroid and Parathyroid Clinic. The details [...] US in 6 months. Reinaldo Olivas M.D. Aboriginal Education Worker Coordinator, Head and Neck Surgery and Oncology [facility] Thyroid and Parathyroid Program documented in this encounte r Plan of Treatment + + +--------+ + + | Name | Type | Priori | Associated Diagnoses | Order Schedule | | | | ty | | | + + +--------+ + + | [place] LARYNGOSCOPY,FLEX | Procedures | Routin | Benign [...] + +--------+ + + + | NON VICE PRESIDENT REGULATORY CYTOLOGY | Routin | 05/22/2008 | | [...] | | + +---------+ + + | [facility] DEPARTMENT OF | | | | | RADIOLOGY | | | | + +---------+ + + NON VICE PRESIDENT REGULATORY CYTOLOGY (05/22/2008) + + + + + + | Component | Value | Ref Range | Performed | Pathologist | | | | | At | Signature | + + + + + + | NON-VICE PRESIDENT REGULATORY | SOURCE OF SPECIMEN:A | | [facility] | | | CYTOLOGY | Thyroid FNA, [...] | + + + + + | [facility] DEPARTMENT | [address] | [place] [address] | | | PATHOLOGY | [address] | | | + + + + + | 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
--- OUTSIDE RECORDS SUMMARY | ~2019-03-29 | XMS | Encounter Summary ---
Demographics + + + | Address | [address] | | | [place] [address] | + + + | Home Phone | | + + + | Preferred Language | Unknown | + + + | Marital Status | | + + + | Zoroastrianism Affiliation | Unknown | + + + | Race | White | + + + | Ethnic Group | Not or | + + + Author + + + | Author | [facility] | + + + | Organization | [facility] | + + + | Address | Unknown | + + + | Phone | Unavailable | + + + Support + + +---------+ + | Name | Relationship | Address | Phone | + + +---------+ + | Pilar Chatterjee | ECON | Unknown | | + + +---------+ + Care Team Providers + +------+ + | Care Grocery Clerk Selling Name | Role | Phone | + [...] [place] | | | | | | [place], [place] | | | | | | [address] | | | | | | [phone] | | | +--------+ + + + [...]
--- OUTSIDE RECORDS SUMMARY | ~2019-03-29 | XMS | Encounter Summary ---
Demographics + + + | Address | [address] | | | [place] [address] | + + + | Home Phone | | + + + | Preferred Language | Unknown | + + + | Marital Status | | + + + | Temple Affiliation | Unknown | + + + | Race | White | + + + | Ethnic Group | Not or | + + + Author + + + | Author | [facility] | + + + | Organization | [facility] | + + + | Address | Unknown | + + + | Phone | Unavailable | + + + Support + + +---------+ + | Name | Relationship | Address | Phone | + + +---------+ + | Pilar Chatterjee | ECON | Unknown | | + + +---------+ + Care Team Providers + +------+ + | Care Wellness Nurse Name | Role | Phone | + [...] | y | Thyroid | [address] | | | | | nodule | [place] | [address] | | | | | | FAMILY | [address] [place] | | | | | | MEDICINE P | [address], | | | | | | [address] | [place] | | | | | | [place], | [address] | | | | | | [place] [address] | | +--------+--------+ + + + + [...] Damon | | | | | | [facility] | | | | | | Mailcode: [address] | | | | | | Physician's Liz | | | | | | [place] | | | | | | [address] | | | | | | [phone] | | | +--------+---------+ + + + [...] Reinaldo Olivas - 06/13/2008 9:39 PM PDT [id number] 05/22/2008 [id number] [place]AM[place] [id number] Clinic Date: 05/22/2008 Clinic: Otolaryngology Referring Physician: [...] has 2 adult children. He works in [employer] and lives in [place]. He is an ex-smoker, quit in 1995. [...] the FNA are available. Reinaldo Olivas M.D. Machine Operator Assistant, Head Dept. of Otolaryngology - Head and Neck Surgery [place] / [id number] / [id number] / [id number] / cc: * Dr. Tommie Huertas [address] [facility]. [address] [place] [address] Cesar Dixon D.O. ross, Reinaldo Jorgensen 8 11:16 AM PDTIt was a pleasure for me to see Walter Taylor in consultation today at the [facility] Thyroid and Parathyroid Clinic. The details of [...] US in 6 months. Reinaldo Olivas M.D. Machine Operator Assistant, Head and Neck Surgery and Oncology [facility] Thyroid and Parathyroid Program documented in this encounte r Plan of Treatment + + +--------+ + + | Name | Type | Priori | Associated Diagnoses | Order Schedule | | | | ty | | | + + +--------+ + + | [place] LARYNGOSCOPY,FLEX | Procedures | Routin | Benign [...] + +--------+ + + + | NON CHAMPAGNE MAKER CYTOLOGY | Routin | 05/22/2008 | | [...] | | + +---------+ + + | [facility] DEPARTMENT OF | | | | | RADIOLOGY | | | | + +---------+ + + NON CHAMPAGNE MAKER CYTOLOGY (05/22/2008) + + + + + + | Component | Value | Ref Range | Performed | Pathologist | | | | | At | Signature | + + + + + + | NON-CHAMPAGNE MAKER | SOURCE OF SPECIMEN:A | | [facility] | | | CYTOLOGY | Thyroid FNA, [...] | + + + + + | [facility] DEPARTMENT | [address] | [place] [address] | | | PATHOLOGY | [address] | | | + + + + + | [facility] DEPARTMENT OF | [address] | [place] [address] | | | PATHOLOGY | [address] | | | + + + + + documented in this encounter Visit Diagnoses + + | Diagnosis | + + | 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
--- OUTSIDE RECORDS SUMMARY | ~2019-03-29 | XMS | Clinical Summary ---
Demographics + + + | Address | [address] | | | [place] [address] | + + + | Home Phone | | + + + | Preferred Language | Unknown | + + + | Marital Status | | + + + | Hindu Affiliation | 1013 | + + + | Race | Unknown | + + + | Ethnic Group | Unknown | + + + Author + + + | Author | [facility] | + + + | Organization | [facility] | + + + | Address | Unknown | + + + | Phone | Unavailable | + + + Support + + + + + | Name | Relationship | Address | Phone | + + + + + | Aleshia Sampson | ECON | [address] | | | | | [place] | | | | | [address] | | + + + + + Care Team Providers + +------+ + | Care Oxygen Therapist Name | Role | Phone | + +------+ + | Jovany Wang MD | PP | | + +------+ + Allergies + + + + + + | Active Allergy | Reactions | Severity | Noted | Comments | | | | | Date | | + + + + + + | Penicillins | Other (See Comments) | | 04/23/20 | | | | | | 11 | | + + + + + + Current Medications + + +---------+---------+------+------+-------+ | Prescription | Sig. | Disp. | Refills | Star | End | Statu | | | | | | t | Date | s | | | | | | Date | | | + + +---------+---------+------+------+-------+ | omeprazole | | | | 11/2 | | Activ | | (PRILOSEC) 40 MG | | | | 1/20 | | e | | capsule | | | | 12 | | | + + +---------+---------+------+------+-------+ | econazole nitrate | | | | 10/2 | | Activ | | 1 % cream | | | | 5/20 | | e | | | | | | 12 | | | + + +---------+---------+------+------+-------+ | desonide (DESOWEN) | | | | 10/2 | | Activ | | 0.05 % cream | | | | 5/20 | | e | | | | | | 12 | | | + + +---------+---------+------+------+-------+ | clonazePAM | | | | 11/2 | | Activ | | (KLONOPIN) 0.5 MG | | | | 5/20 | | e | | tablet | | | | 12 | | | + + +---------+---------+------+------+-------+ | | | | | 11/2 | | Activ | | amphetamine-dextroam | | | | 4/20 | | e | | phetamine (ADDERALL) | | | | 12 | | | | 20 MG tablet | | | | | | | + + +---------+---------+------+------+-------+ | Loratadine | Take by mouth. | | | | | Activ | | (CLARITIN PO) | | | | | | e | + + +---------+---------+------+------+-------+ | fish oil-omega-3 | Take 2 g by mouth | | | | | Activ | | fatty acids 1000 MG | daily. | | | | | e | | capsule | | | | | | | + + +---------+---------+------+------+-------+ | cholecalciferol | Take 1,000 Units by | | | | | Activ | | (VITAMIN D-3) 1000 | mouth daily. | | | | | e | | UNIT tablet | | | | | | | + + +---------+---------+------+------+-------+ | calcium carbonate | Take 250 mg by mouth | | | | | Activ | | 200 MG capsule | 2 (two) times daily | | | | | e | | | with meals. | | | | | | + + +---------+---------+------+------+-------+ | | Take 1 tablet by | | | | | Activ | | loratadine-pseudoeph | mouth 2 (two) times | | | | | e | | edrine (CLARITIN-D | daily. | | | | | | | 12-HOUR) 5-120 MG | | | | | | | | per tablet | | | | | | | + + +---------+---------+------+------+-------+ | B Complex Vitamins | Take by mouth | | | | | Activ | | (B COMPLEX PO) | daily. | | | | | e | + + +---------+---------+------+------+-------+ | ibuprofen (ADVIL) | Take 200 mg by mouth | | | | | Activ | | 200 MG tablet | every 6 (six) hours | | | | | e | | | as needed for Pain. | | | | | | + + +---------+---------+------+------+-------+ | UNABLE TO FIND | Med Name: mitacore | | | | | Activ | | | | | | | | e | + + +---------+---------+------+------+-------+ | UNABLE TO FIND | Med Name: Vitamin D3 | | | | | Activ | | | , 2000 | | | | | e | + + +---------+---------+------+------+-------+ | beclomethasone | Inhale 1 puff into | 1 | 11 | 03/06 | | Activ | | (QVAR) 80 MCG/ACT | the lungs 2 (two) | Inhaler | | 8/ | | e | | inhalerIndications: | times daily. | | | 17 | | | | Chronic cough | | | | | | | + + +---------+---------+------+------+-------+ Active Problems + + + | Problem | Noted Date | + + + | Allergic rhinitis with postnasal drip | 03/31/2017 | + + + | ILD (interstitial lung disease) | 03/31/2017 | + + + | Chronic cough | 03/23/2017 | + + + Family History + + +-------+ + | Medical History | Relation | Name | Comments | + + +-------+ + | Cancer | Father | | skin canacer, at 83 | + + +-------+ + | Cancer | Other | uncle | lung cancer | + + +-------+ + + +-------+ + + | Relation | Name | Status | Comments | + +-------+ + + | Father | | | | + +-------+ + + | Mother | | | | + +-------+ + + | Other | uncle | | | + +-------+ + + Social History + +-------+ +--------+ + | Tobacco Use | Types | Packs/Day | Years | Date | | | | | Used | | + +-------+ +--------+ + | Former Smoker | | | | Quit: 03/23/1999 | + +-------+ +--------+ + + +---+---+---+ | Smokeless Tobacco: | | | | | Never Used | | | | + +---+---+---+ + + | Comments: quit 15 years ago | + + + + +---------+ + | Alcohol Use | Drinks/We | oz/Week | Comments | | | ek | | | + + +---------+ + | Yes | 2 | 1.2 | 1-2 glasses wine a week here and there | | | Glasses | | | | | of wine | | | + + +---------+ + + + + | Sex Assigned at | Date Recorded | | | | + + + | Not on file | | + + + Last Filed Vital Signs + + + + | Vital Sign | Reading | Time Taken | + + + + | Blood Pressure | 145/87 | 03/23/2017 2:37 PM PDT | + + + + | Pulse | 69 | 03/23/2017 2:37 PM PDT | + + + + | Temperature | 36.7 C (98 F) | 03/23/2017 2:37 PM PDT | + + + + | Respiratory Rate | 16 | 10/16/2012 10:15 AM PST | + + + + | Oxygen Saturation | 97% | 03/23/2017 2:37 PM PDT | + + + + | Inhaled Oxygen | - | - | | Concentration | | | + + + + | Weight | 108.8 kg (239 lb | 03/23/2017 2:37 PM PDT | | | 12.8 oz) | | + + + + | Height | 190.5 cm (6' 3") | 03/23/2017 2:37 PM PDT | + + + + | Body Mass Index | 29.97 | 03/23/2017 2:37 PM PDT | + + + + Plan of Treatment Not on file Results Not on filefrom Last 3 Months Insurance + +--------+ +------+-------+---------+ | Payer | Benefi | Subscriber | Type | Phone | Address | | | t Plan | ID | | | | | | / | | | | | | | Group | | | | | + +--------+ +------+-------+---------+ | [employer] | [employer]DS | [id number] | | | | | | HEALTH | | | | | | | PLAN | | | | | + +--------+ +------+-------+---------+ + +--------+ +--------+ + + | Guarantor Name | Accoun | Relation to | Date | Phone | Billing Address | | | t Type | Patient | of | | | | | | | | | | + +--------+ +--------+ + + | ALESHIA SAMPSON | Person | Spouse | [birth year]/11[birth year] | Home: | [address] | | | al/Fam | | [phone] | [phone] [place] | | | [place] | | | [phone] | [phone] | + +--------+ +--------+ + +
--- OUTSIDE RECORDS SUMMARY | ~2019-03-29 | XMS | Encounter Summary ---
Demographics + + + | Address | [address] | | | [place] [address] | + + + | Home Phone | | + + + | Preferred Language | Unknown | + + + | Marital Status | | + + + | Sabianist Affiliation | Unknown | + + + | Race | White | + + + | Ethnic Group | Not or | + + + Author + + + | Author | [facility] | + + + | Organization | [facility] | + + + | Address | Unknown | + + + | Phone | Unavailable | + + + Support + + +---------+ + | Name | Relationship | Address | Phone | + + +---------+ + | Pilar Chatterjee | ECON | Unknown | | + + +---------+ + Care Team Providers + +------+ + | Care Feeder Switchboard Operator Name | Role | Phone | + [...] [address] | | | | | | [facility] | | | | | | Mailcode: [address] | | | | | | Physician's [place] | | | | | | [place], [place] | | | | | | [address] | | | | | | [phone] | | | +--------+ + + + [...]
--- OUTSIDE RECORDS SUMMARY | ~2019-03-29 | XMS | Encounter Summary ---
Demographics + + + | Address | [address] | | | [place] [address] | + + + | Home Phone | | + + + | Preferred Language | Unknown | + + + | Marital Status | | + + + | Protestant Affiliation | Unknown | + + + | Race | White | + + + | Ethnic Group | Not or | + + + Author + + + | Author | [facility] | + + + | Organization | [facility] | + + + | Address | Unknown | + + + | Phone | Unavailable | + + + Support + + +---------+ + | Name | Relationship | Address | Phone | + + +---------+ + | Pilar Chatterjee | ECON | Unknown | | + + +---------+ + Care Team Providers + +------+ + | Care Accordion Maker Name | Role | Phone | + +------+ + | Cesar Dixon | PCP | Unavailable | + +------+ + Reason for Visit + + + | Reason | Comments | + + + | Thyroid nodule | | + + + Encounter Details +--------+ + + + + | Date | Type | Department | Care Team | Description | +--------+ + + + + | 04/28/ | County Manager | Otolaryngology | Reinaldo Olivas MD | Nontoxic Uninodular | | 2007 | | Head and Neck | | Goiter (Primary Dx) | | | | Surgery Services at | | | | | | [facility] [address] | | | | | | [facility] | | | | | | Mailcode: [address] | | | | | | [place] | | | | | | [place], [place] | | | | | | [address] | | | | | | [phone] | | | +--------+ + + + [...] + + + | [facility], | Routin | 05/22/2008 | Nontoxic | Results for this | | THYROID FNA | e | 8:37 AM | Uninodular Goiter | procedure are in the | | | | PDT | | results section. | + +--------+ + + + | [facility] | Routin | 05/22/2008 | Nontoxic | Results for this | | | e | 8:37 AM | Uninodular Goiter | procedure are in the | | | | PDT | | results section. | + +--------+ + + + documented in this encounter Results GUIDANCE (05/22/2008 8:37 AM PDT) + + + + + + | Component | Value | Ref Range | Performed | Pathologist | | | | | At | Signature | + + + + + + | [facility] | Indication: Thyroid | | | | | | nodule.COMPARISON: | | | | | | noneFINDINGS: The right | | | | | | thyroid [...] | | + +---------+ + + | [facility] DEPARTMENT OF | | | | | RADIOLOGY | | | | + +---------+ + + [facility], THYROID FNA (05/22/2008 8:37 AM PDT) + + + + + + | Component | Value | Ref Range | Performed | Pathologist | | | | | At | Signature | + + + + + + | [facility] | Indication: Thyroid | | | | | CLINIC, | nodule.COMPARISON: | | | | | THYROID FNA | noneFINDINGS: The right | | | | | | thyroid [...] | | + +---------+ + + | [facility] DEPARTMENT OF | | | | | RADIOLOGY | | | | + +---------+ + + documented in this encounter Visit Diagnoses + + | Diagnosis | + + | Nontoxic uninodular goiter - Primary | + + documented in this encounter"
--- OUTSIDE RECORDS SUMMARY | ~2019-03-29 | XMS | Clinical Summary ---
Demographics + + + | Address | [address] | | | [place] [address] | + + + | Home Phone | | + + + | Preferred Language | Unknown | + + + | Marital Status | Unknown | + + + | Voodoo Affiliation | Unknown | + + + | Race | Unknown | + + + | Ethnic Group | Unknown | + + + Author + + + | Author | [facility] | | | and [place] | + + + | Organization | [facility] | | | and [place] | + + + | Address | Unknown | + + + | Phone | Unavailable | + + + Care Team Providers + +------+ + | Care Ball Mill Mixer Name | Role | Phone | + [...]
--- OUTSIDE RECORDS SUMMARY | ~2019-03-29 | XMS | Encounter Summary ---
Demographics + + + | Address | [address] | | | [place] [address] | + + + | Home Phone | | + + + | Preferred Language | Unknown | + + + | Marital Status | | + + + | Gnosticist Affiliation | Unknown | + + + [...] Team Providers + +------+ + | Care Sequins Spooler Name | Role | Phone | + [...] Damon | | | | | | [facility] | | | | | | Mailcode: PV01 | | | | | | Physician's Liz | | | | | | [place], [place] | | | | | | [address] | | | | | | [phone] | | | +--------+ + + + [...] | | + +---------+ + + | [facility] DEPARTMENT OF | | | | | RADIOLOGY | | | | + +---------+ + + documented in this encounter Visit Diagnoses Not on filedocumented in this encounter"
--- OUTSIDE RECORDS SUMMARY | ~2019-03-29 | XMS | Clinical Summary ---
Demographics + + + | Address | [address] | | | [place] [address] | + + + | Home Phone | | + + + | Preferred Language | Unknown | + + + | Marital Status | Unknown | + + + | Voodoo Affiliation | Unknown | + + + | Race | Unknown | + + + | Ethnic Group | Unknown | + + + Author + + + | Author | [facility] | | | and [place] | + + + | Organization | [facility] | | | and [place] | + + + | Address | Unknown | + + + | Phone | Unavailable | + + + Care Team Providers + +------+ + | Care Silviculturist Name | Role | Phone | + [...]
--- OUTSIDE RECORDS SUMMARY | ~2019-03-29 | XMS | Encounter Summary ---
Demographics + + + | Address | [address] | | | [place] [address] | + + + | Home Phone | | + + + | Preferred Language | Unknown | + + + | Marital Status | | + + + | Baptism Affiliation | Unknown | + + + | Race | White | + + + | Ethnic Group | Not or | + + + Author + + + | Author | [facility] | + + + | Organization | [facility] | + + + | Address | Unknown | + + + | Phone | Unavailable | + + + Support + + +---------+ + | Name | Relationship | Address | Phone | + + +---------+ + | Pilar Chatterjee | ECON | Unknown | | + + +---------+ + Care Team Providers + +------+ + | Care Licensed Practical Nurse Clinic Nurse Name | Role | Phone | [...] + + + + | 04/28/ | Investment Associate | Otolaryngology | Reinaldo Olivas MD | Nontoxic Uninodular | | 2007 | | Head and Neck | | Goiter (Primary Dx) | | | | Surgery Services at | | | | | | [facility] [address] | | | | | | [facility] | | | | | | Mailcode: [address] | | | | | | [place] | | | | | | [place], [place] | | | | | | [address] | | | | | | [phone] | | | +--------+ + + + [...] | | + +---------+ + + | [facility] DEPARTMENT OF | | | | | RADIOLOGY | | | | + +---------+ + + [facility], THYROID FNA (05/22/2008 8:37 AM PDT) [...] | | + +---------+ + + | [facility] DEPARTMENT OF | | | | | RADIOLOGY | | | | + +---------+ + + documented in this encounter Visit Diagnoses + + | Diagnosis | + + | Nontoxic uninodular goiter - Primary | + + documented in this encounter"
--- OUTSIDE RECORDS SUMMARY | ~2019-03-29 | XMS | Encounter Summary ---
Demographics + + + | Address | [address] | | | [place] [address] | + + + | Home Phone | | + + + | Preferred Language | Unknown | + + + | Marital Status | | + + + | Shinto Affiliation | Unknown | + + + | Race | White | + + + | Ethnic Group | Not or | + + + Author + + + | Author | [facility] | + + + | Organization | [facility] | + + + | Address | Unknown | + + + | Phone | Unavailable | + + + Support + + +---------+ + | Name | Relationship | Address | Phone | + + +---------+ + | Pilar Chatterjee | ECON | Unknown | | + + +---------+ + Care Team Providers + +------+ + | Care Forging Die Sinker Name | Role | Phone | + [...] + + + + | 04/28/ | Cleaners | Otolaryngology | Reinaldo Olivas MD | Nontoxic Uninodular | | 2007 | | Head and Neck | | Goiter (Primary Dx) | | | | Surgery Services at | | | | | | [facility] [address] | | | | | | [facility] | | | | | | Mailcode: [address] | | | | | | [place] | | | | | | [place], [place] | | | | | | [address] | | | | | | [phone] | | | +--------+ + + + [...] | | + +---------+ + + | [facility] DEPARTMENT OF | | | | | RADIOLOGY | | | | + +---------+ + + [facility], THYROID FNA (05/22/2008 8:37 AM [...] | | + +---------+ + + | [facility] DEPARTMENT OF | | | | | RADIOLOGY | | | | + +---------+ + + documented in this encounter Visit Diagnoses + + | Diagnosis | + + | Nontoxic uninodular goiter - Primary | + + documented in this encounter"
--- OUTSIDE RECORDS SUMMARY | ~2019-03-29 | XMS | Encounter Summary ---
Demographics + + + | Address | [address] | | | [place] [address] | + + + | Home Phone | | + + + | Preferred Language | Unknown | + + + | Marital Status | | + + + | Yazidi Affiliation | Unknown | + + + | Race | White | + + + | Ethnic Group | Not or | + + + Author + + + | Author | [facility] | + + + | Organization | [facility] | + + + | Address | Unknown | + + + | Phone | Unavailable | + + + Support + + +---------+ + | Name | Relationship | Address | Phone | + + +---------+ + | Pilar Chatterjee | ECON | Unknown | | + + +---------+ + Care Team Providers + +------+ + | Care Cheese Blender Name | Role | Phone | + [...] y | Thyroid | Cesar Soto MD [address] | | | | | nodule | [place] | [place] | | | | | | FAMILY | [facility] | | | | | | MEDICINE P | [address] [place], | | | | | | [address] | [place] | | | | | | [place], | [address] | | | | | | [place] [address] | | +--------+--------+ + + + + [...] Damon | | | | | | [facility] | | | | | | Mailcode: [address] | | | | | | Physician's Liz | | | | | | [place], [place] | | | | | | [address] | | | | | | [phone] | | | +--------+---------+ + + + [...] PCP. RTC as needed. Reinaldo Olivas M.D. Manager Corporate Communications, Head and Neck Surgery and Oncology [facility] Thyroid and Parathyroid Program Transcribed [...]
--- OUTSIDE RECORDS SUMMARY | ~2019-03-29 | XMS | Encounter Summary ---
Demographics + + + | Address | [address] | | | [place] [address] | + + + | Home Phone | | + + + | Preferred Language | Unknown | + + + | Marital Status | | + + + | Hoahaoism Affiliation | Unknown | + + + [...] Team Providers + +------+ + | Care Pace Analyst Name | Role | Phone | + +------+ + | No Pcp Per Patient | PCP | Unavailable | + +------+ + Encounter Details +--------+ + + + + | Date | Type | Department | Care Team | Description | +--------+ + + + + | 05/22/ | Document-Sc | UNKNOWN DEPARTMENT | Radiologist, | | | 2007 | anned | [address] [facility] | [facility] | | | | | [facility] | | | | | | [place], [place] | | | | | | [address] | | | +--------+ + + + [...]
--- OUTSIDE RECORDS SUMMARY | ~2019-03-29 | XMS | Clinical Summary ---
Demographics + + + | Address | [address] | | | [place] [address] | + + + | Home Phone | | + + + | Preferred Language | Unknown | + + + | Marital Status | | + + + | Islam Affiliation | 1013 | + + + | Race | Unknown | + + + | Ethnic Group | Unknown | + + + Author + + + | Author | [facility] | + + + | Organization | [facility] | + + + | Address | Unknown | + + + | Phone | Unavailable | + + + Support + + + + + | Name | Relationship | Address | Phone | + + + + + | Aleshia Sampson | ECON | [address] | | | | | [place] | | | | | [address] | | + + + + + Care Team Providers + +------+ + | Care Hand Inspector Name | Role | Phone | + [...] | [facility] [employer] | ODS | [id number] | | | | | | HEALTH [...] | [place] | | | [address] | [address] | + +--------+ +--------+ + +
--- OUTSIDE RECORDS SUMMARY | ~2019-03-29 | XMS | Encounter Summary ---
Demographics + + + | Address | [address] | | | [place] [address] | + + + | Home Phone | | + + + | Preferred Language | Unknown | + + + | Marital Status | | + + + | Nondenominational Affiliation | Unknown | + + + | Race | White | + + + | Ethnic Group | Not or | + + + Author + + + | Author | [facility] | + + + | Organization | [facility] | + + + | Address | Unknown | + + + | Phone | Unavailable | + + + Support + + +---------+ + | Name | Relationship | Address | Phone | + + +---------+ + | Pilar Chatterjee | ECON | Unknown | | + + +---------+ + Care Team Providers + +------+ + | Care Chrome Tanner Name | Role | Phone | + [...] Damon | | | | | | [facility] | | | | | | Mailcode: [address] | | | | | | Physician's [place] | | | | | | [place], [place] | | | | | | [address] | | | | | | [phone] | | | +--------+ + + + [...]
--- OUTSIDE RECORDS SUMMARY | ~2019-03-29 | XMS | Encounter Summary ---
Demographics + + + | Address | [address] | | | [place] [address] | + + + | Home Phone | | + + + | Preferred Language | Unknown | + + + | Marital Status | | + + + | Temple Affiliation | Unknown | + + + | Race | White | + + + | Ethnic Group | Not or | + + + Author + + + | Author | [facility] | + + + | Organization | [facility] | + + + | Address | Unknown | + + + | Phone | Unavailable | + + + Support + + +---------+ + | Name | Relationship | Address | Phone | + + +---------+ + | Pilar Chatterjee | ECON | Unknown | | + + +---------+ + Care Team Providers + +------+ + | Care Auditor/Quality Name | Role | Phone | + [...] y | Thyroid | Cesar Soto MD [address] | | | | | nodule | [place] | [place] | | | | | | FAMILY | [facility] | | | | | | MEDICINE P | [address] [place], | | | | | | [address] | [place] | | | | | | [place], | [address] | | | | | | [place] [address] | | +--------+--------+ + + + + [...] Liz | | | | | | [place], [place] | | | | | | [address] | | | | | | [phone] | | | +--------+---------+ + + + [...] PCP. RTC as needed. Reinaldo Olivas M.D. Coupon Collection Clerk, Head and Neck Surgery and Oncology [facility] Thyroid and Parathyroid Program Transcribed by: Alexa [...]
--- OUTSIDE RECORDS SUMMARY | ~2019-03-29 | XMS | Clinical Summary ---
Demographics + + + | Address | [address] | | | [place] [address] | + + + | Home Phone | | + + + | Preferred Language | Unknown | + + + | Marital Status | | + + + | Episcopalian Affiliation | Unknown | + + + [...] Team Providers + +------+ + | Care Quality Consultant Name | Role | Phone | + +------+ + | No Pcp Per Patient | PP | Unavailable | + +------+ + Source Comments DIANA is fully live on both [facility] Ambulatory and [facility] InPatient.[facility] Allergies + + + + + [...] e | + + + +---------+------+------+-------+ | [place]-3 Fatty | qd | | 0 | [...] Patient | Explanation | | | | Modeler | | + + + + + | Advance | | | | | Directives and | | | | | Living Will | | | | + + + + + | Power of | | | | | Innovation Analyst | | | | + + + + +
--- OUTSIDE RECORDS SUMMARY | ~2019-03-29 | XMS | Encounter Summary ---
Demographics + + + | Address | [address] | | | [place] [address] | + + + | Home Phone | | + + + | Preferred Language | Unknown | + + + | Marital Status | | + + + | Lutheran Affiliation | Unknown | + + + [...] Team Providers + +------+ + | Care Shellfish Meat Separator Operator Name | Role | Phone | [...] | | 2007 | anned | [address] [facility] | [facility] | | | | | [facility] | | | | | | [place], [place] | | | | | | [address] | | | +--------+ + + + [...]
--- OUTSIDE RECORDS SUMMARY | ~2019-03-29 | XMS | Encounter Summary ---
Demographics + + + | Address | [address] | | | [place] [address] | + + + | Home Phone | | + + + | Preferred Language | Unknown | + + + | Marital Status | | + + + | Episcopal Affiliation | Unknown | + + + [...] Team Providers + +------+ + | Care Tubing Machine Operator Name | Role | Phone | [...] | | 2007 | anned | [address] [facility] | [facility] | | | | | [facility] | | | | | | [place], [place] | | | | | | [address] | | | +--------+ + + + [...]
--- OUTSIDE RECORDS SUMMARY | ~2019-03-29 | XMS | Clinical Summary ---
Demographics + + + | Address | [address] | | | [place] [address] | + + + | Home Phone | | + + + | Preferred Language | Unknown | + + + | Marital Status | Unknown | + + + | Voodoo Affiliation | Unknown | + + + | Race | Unknown | + + + | Ethnic Group | Unknown | + + + Author + + + | Author | [facility] | | | and [place] | + + + | Organization | [facility] | | | and [place] | + + + | Address | Unknown | + + + | Phone | Unavailable | + + + Care Team Providers + +------+ + | Care Bow Tacker Name | Role | Phone | + [...]
--- OUTSIDE RECORDS SUMMARY | ~2019-03-29 | XMS | Clinical Summary ---
Demographics + + + | Address | [address] | | | [place] [address] | + + + | Home Phone | | + + + | Preferred Language | Unknown | + + + | Marital Status | | + + + | Mandaen Affiliation | Unknown | + + + [...] Providers + +------+ + | Care Hand Leather Trimmer Name | Role | Phone | + +------+ + | No Pcp Per Patient | PP | Unavailable | + +------+ + Source Comments DIAAN is fully live on both [facility] Ambulatory and [facility] InPatient.[facility] Allergies + + + + + + [...] e | + + + +---------+------+------+-------+ | [place]-3 Fatty | qd | | 0 | [...] Patient | Explanation | | | | Plate Sensitizer | | + + + + + | Advance | | | | | Directives and | | | | | Living Will | | | | + + + + + | Power of | | | | | Visual Arts Teacher | | | | + + + + +
--- OUTSIDE RECORDS SUMMARY | ~2019-03-29 | XMS | Clinical Summary ---
Demographics + + + | Address | [address] | | | [place] [address] | + + + | Home Phone | | + + + | Preferred Language | Unknown | + + + | Marital Status | | + + + | Episcopal Affiliation | 1013 | + + + | Race | Unknown | + + + | Ethnic Group | Unknown | + + + Author + + + | Author | [facility] | + + + | Organization | [facility] | + + + | Address | Unknown | + + + | Phone | Unavailable | + + + Support + + + + + | Name | Relationship | Address | Phone | + + + + + | Aleshia Sampson | ECON | [address] | | | | | [place] | | | | | [address] | | + + + + + Care Team Providers + +------+ + | Care Firebreak Cutter Name | Role | Phone | + [...] | [employer] | ODS | [id number] | | | | | | HEALTH [...] | [place] | | | [address] | [address] | + +--------+ +--------+ + +
[~2019-03-29 20:30] MED LIST changes: +MAGNESIUM CITR296 ML PO
--- OUTSIDE RECORDS SUMMARY | 2019-03-29 20:34 | XMS ---
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 Gena VISIT COUNT (12 MO.) 2 [facility] TOTAL 2 NOTE: Visits indicate total known visits. ED/UCC VISIT TRACKING (12 MO.) 03/29/2019 20:31 [facility] [place] TYPE: Emergency COMPLAINT: - ABNORMAL LAB RESULTS 03/27/2019 08:17 [facility] [place] TYPE: Emergency COMPLAINT: - ABDOMINAL PAIN INPATIENT VISIT TRACKING (12 MO.) No inpatient visits to display in this time frame [email or web address]
[2019-03-29] MEDS ORDERED: TYLENOL325 MG PO (20:41)
--- NOTE | 2019-03-29 23:54 | NUR ---
patient requested to drink some fluids before he becomes NPO at midnight. I gave him 300ccs of cran-apple juice.
--- NOTE | 2019-03-30 00:25 | NUR ---
PT ARRIVED AT 2340 FROM ED VIA STRETCHER. COOPERATIVE WITH ASSESSMENT. MOIST NON PRODUCTIVE COUGH PRESENT. NO C/O ABD PAIN AT THIS TIME. TOLERATED CLEAR FLUIDS. IVF INFUSING AT THIST ASHLEY TEMP 101. CDB ENCOURAGED, ON ROOM AIR,
--- NOTE | 2019-03-30 00:53 | NUR ---
medicated with tylenol 650mg po, fever 101 and abd pain 5/10, medicated with morphine 4mg IV, c/o 5/10 abd pain. turns self in bed
--- NOTE | 2019-03-30 03:13 | NUR ---
RESTING, EYES CLOSED, NO C/O PAIN, IVF INFUSING W/O PROBLEMS, CALL LIGHT AT BEDSIDE
--- NOTE | 2019-03-30 04:10 | NUR ---
PT UP TO BR, VOIDED DARK YELLOW URINE QS, EXPELLED LARGE AMOUNT OF GAS BUT NO BM. MEDICATED WITH MORPHINE 4MG IV 05/15 ABD CRAMPING/PAIN. PT BACK TO BED, TOLERATED WELL, ON CLEAR LIQUIDS. IVF INFUSING W/O PROBLEMS.
--- NOTE | 2019-03-30 09:34 | NUR ---
PT RESTING IN SEMI FOWLERS POSITION IN BED, PT REPORTS 9/10 ABD PAIN. PER PT REQUEST PRN MORPHINE AND PRN TYLENOL ADMINISTERED. CALL LIGHT AND H20 IN REACH. ASSESSMENT COMPLETED. PT DENIES FURTHER NEEDS/CONCERNS.
--- NOTE | 2019-03-30 09:39 | NUR ---
PATIENT SITTING UP IN BED EATING BREAKFAST, RN IN ROOM. CALL LIGHT IN REACH. NO FURTHER NEEDS AT THIS TIME.
--- NOTE | 2019-03-30 10:22 | NUR ---
IC PUMP BEEPING, PT UP TO RESTROOM WITH STANDBY ASSIST, PT TOLERATES AMBULATION WELL AND DENIES DIZZINESS. NEW BAG OF IV FLUIDS NOW INFUSING -SEE EMAR. PT ALERT AND OREITNED AND STATES PAIN IS TOLERABLE NOW. PT DENIES SOB OR NASUEA. CALL LIGHT AND H20 IN REACH. NO FURHTER NEEDS/CONCERNS VOICED.
--- NOTE | 2019-03-30 12:25 | NUR ---
IN TO SEE PATIENT. TEMP TAKEN AND IS FOUND TO BE 100.1, PT ALSO REPORTS SEASONAL ALLERGIES AND STATES HE TAKES CLARITIN FOR THIS AT HOME. DR RAM NOTIFIED OF THE TEMPERATURE, PT'S REQUEST FOR CLARITIN AND OF THE FACT THAT NO AM ABX IS SCHEDULED. PER MD WILL HANG 1400 IV DOSE OF MEROPENUM NOW. DR RAM AGREES TO ORDER CLARITIN. NO FURTHER ORDERS RECEIVED AT THIS TIME. CALL LIGHT AND H20 IN REACH.
--- NOTE | 2019-03-30 14:24 | NUR ---
IN TO SEE PATIENT. ASSESSMENT COMPLETED. RESTING SUPINE IN BED, IV MAINTENANCE FLUIDS AND IV ABX SL'D. PT REQUESTED SHOWER AND WAS ASSISTED UP PER AVILA WARNER. PT NOW AFEBRILE AT 98.5 (O). NO FURTHER CONCERNS OR REQUESTS VOICED.
--- NOTE | 2019-03-30 14:51 | NUR ---
PATIENT UP TO SHOWER AND BACK TO BED, INDEPENDENT. CALL LIGHT IN REACH. NO FURTHER NEEDS AT THIS TIME.
--- NOTE | 2019-03-30 15:18 | NUR ---
PT RESTING SUPINE IN BED EYES CLOSED BUT PT ALERT TO VOICE. IVF INFUSING PT DENIES PAIN, NAUSEA OR SOB. SCD'S ARE ON AND PT DENIES NEEDS/COCNERNS.
--- NOTE | 2019-03-30 18:55 | NUR ---
Pt resting supine in bed, reports chills and increased pain of 6/10. Pt requested and received prn iv morphine and prn iv tylenol as pt reports increased pain with fevers after po intake that isnt ice chips and h2o. Pt's clear liquid tray removed and pt now only to take in ice chips pending rounding by Dr Jones. IV pump beeping and is occluded, per pt request new iv started and pt tolerated 20 g to right fa well. Call light and h2o in reach. pt denies furhter needs/concerns.
--- NOTE | 2019-03-30 19:04 | NUR ---
PATIENT IN BED WATCHING TV, IN ROOM. CALL LIGHT IN REACH. NO FURTHER NEEDS AT THIS TIME.
--- NOTE | 2019-03-30 20:05 | NUR ---
in bedm c.o abd PAIN, MEDICATED W TORADOL PER PAIN
--- NOTE | 2019-03-30 21:40 | HP ---
[facility] [address] [facility] [place], [place] [address] Signed ADMISSION DATE: 03/29/2019 REASON FOR ADMISSION: Severe diverticulitis with peridiverticular fluid collection. HISTORY: This 63-year-old white man who has had at least 2 weeks of lower abdominal pain, worsening to the point he was having poor oral intake. He has clinically had fever and chills as well. He presented to the emergency room last night where he was evaluated by Dr. Daniels. He had been urged to present to the emergency room from his primary physician, Dr. aWng, who had him undergo a CBC yesterday, which showed an elevated white count of 15.1. His evaluation by Dr. Daniels included a CT scan of the abdomen, which showed severely inflamed rectosigmoid area, likely related to perforated diverticulitis (contained). He was admitted for further evaluation and care. The patient is known to me from the past having undergone appendectomy as well as colonoscopy in the past. Due to the limitations of our medical record, those notes are not in our current electronic record form. 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 SOCIAL HISTORY: Patient is . 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 MEDICATIONS: At time of admission included Tylenol, vitamin D3, Claritin-D, and recently magnesium citrate as recommended from recent medical encounter. REVIEW OF SYSTEMS: He denies any shortness of breath or chest pain. He has a fair amount of lower abdominal pain. He has had fever and chills, but none since hospitalization. PHYSICAL EXAMINATION: GENERAL: Pleasant, large, tall white man, who looks to be in [id number] discomfort. HEENT: Mucous membranes are dry. Trachea is midline. He has no carotid bruit. CHEST: Clear. HEART: Regular without murmur. Electronically Signed By: GERONIMO RAM MD 03/30/19 2140 PATIENT NAME: HANNY SAMPSON HISTORY AND PHYSICAL DATE OF : 53 REPORT #: [id number] PHYSICIAN: GERONIMO RAM MD PCP: AVA WANG MD REPORT IS CONFIDENTIAL AND NOT TO BE RELEASED WITHOUT AUTHORIZATION [facility] [address] [place] [id number] Signed ABDOMEN: Slightly distended, but generally soft. He does not have generalized peritonitis. There is mild tenderness in the lower abdomen. EXTREMITIES: Show no clubbing, cyanosis, or edema. He has no SCDs on at this time. LABORATORIES: His white count is 15.1, hematocrit 44.4, platelets 195,000. Coag show a ProTime of 13.1 with an INR of 1.0. Chem profile is essentially normal. Glucose is 149. Lactic acid 1.8. Liver enzymes normal. Urinalysis normal. Influenza tests are all negative. I reviewed a CT scan showing a marked inflammatory process of the rectosigmoid with the pericolic apparent fluid collection. This may represent an abscess, mostly it measured 6 cm. ASSESSMENT: Patient has acute diverticulitis with peridiverticular fluid collection, possibly abscess uncertain. He does not have generalized free air. I discussed the pathophysiology of perforated diverticulitis with him. The recommendation at this time is admission to the hospital with IV fluids and parenteral antibiotics, pain control, and progressive evaluation to assess his response to therapy. On occasion, a laparoscopic decompression of the abscess may be required with placement of drain and lavage less likely laparotomy with sigmoid resection at this time. He may ultimately require sigmoid resection electively. We discussed that as well. MD JERED Siddiqui/MODL /[id number] cc: MD Dr. Felipe Meredith Copies: MAHAD DANIELS MD Electronically Signed By: GERONIMO RAM MD 03/30/19 2140 PATIENT NAME: HANNY SAMPSON HISTORY AND PHYSICAL DATE OF : 53 REPORT #: [id number] PHYSICIAN: GERONIMO RAM MD PCP: AVA WANG MD REPORT IS CONFIDENTIAL AND NOT TO BE RELEASED WITHOUT AUTHORIZATION [facility] [address] [place] [address] [place] [address] Signed ~ Electronically Signed By: GERONIMO RAM MD 03/30/19 2140 PATIENT NAME: HANNY SAMPSON HISTORY AND PHYSICAL DATE OF : 53 REPORT #: [id number] PHYSICIAN: GERONIMO RAM MD PCP: AVA WANG MD REPORT IS CONFIDENTIAL AND NOT TO BE RELEASED WITHOUT AUTHORIZATION
--- NOTE | 2019-03-30 21:40 | NUR ---
voided 300cc dark yellow urine. Dr Kiya morris assessing pts abd, pt coop with assessment
--- NOTE | 2019-03-31 05:03 | NUR ---
PT CONTINUES TO C/O ABD PAIN, WAS MEDICATED WITH MORPHINE AND TORADOL WITH GOOD PAIN RELIEF. NO N/V, NO BM BUT PASSING GAS. ABD DISTENDED, TENDER. VOIDING QS DARK YELLOW URINE THIS SHIFT. WALKED HALLWAYS ACOMPANIED BY LAST NIGHT, TOLERATED WELL. IVF INFUSING, AND NO C/O ADVERSE REACTION REACTION TO IV ABX. ON ROOM AIR, 1PSBA/INDEPENDENTLY MOVING AROUND IN ROOM. CURRENTLY IN BED, EYES CLOSED, NO RESP DISTRESS. WAS SEEN BY DR RAM LAST NIGHT
--- NOTE | 2019-03-31 08:19 | NUR ---
In to see patient, pt resting supine in bed alert and oriented. Pt reports 5/10 abd pain. Per pt request prn IV Ofirmev and IV Toradol administered along with scheduled am medications. Call light and h20 in reach. Pt denies further needs/concerns.
--- NOTE | 2019-03-31 10:06 | NUR ---
PT RESTING SUPINE IN BED, PT REPORTS TOLERABLE PAIN LEVEL AFTER IV PAIN MEDICATIONS. PT REPORTS HAVING SOME "GREAN MUCOUSY STOOL" PT DENIES NASUEA, SOB OR OTHER SYMPTOMS. SCD'S NOT IN PLACE AT THIS TIME. PT REPORTS BEING TOLD BY OPAL KEITH TTHAT SCD'S WERE NOT NECESAIRY DUE TO HAVING RESTLESS LEGS. PT EDUCATED ON PURPOSE OF SCD'S. PT REPORTS GETTING UP AND DOWN FREQUENTLY TO RESTROOM AND THAT HIS LEGS WERE GETTTING SWEATY WITH THEM ON. P TAGREES TO USE SCD'S WHILE IN BED AND AGREES TO AMBULATE HALLS AT THIS TIME. PT HAS STEADY GAIT AND IS NOW AMBULATING IN HALLS, DENIES DIZZINESS.
--- NOTE | 2019-03-31 11:40 | NUR ---
PT UP AMBULATING IN HALLS INDEPENDANTLY WITH STEADY GAIT, NO NEEDS/CONCERNS VOICED AND PT APPEARS TO REMAIN IN GOOD SPIRITS. PT BACK TO ROOM AND WAS PROVIDED WITH JELLO AND A CLEAR BO ENSURE. PT'S AT BEDSIDE AND WAS PROVIDED WITH ICE WATER PER PT REQUEST. CALL LIGHT AND H2O IN REACH. SCD'S BACK ON AND IV MAINTENANCE FLUIDS INFUSING.
--- NOTE | 2019-03-31 13:38 | NUR ---
PATIENT IN BED RESTING WITH EYES CLOSED. CALL LIGHT IN REACH. NO FURTHER NEEDS AT THIS TIME.
--- NOTE | 2019-03-31 16:11 | NUR ---
PT APPEARED TO HAVE A GOOD DAY. NO FEVERS AND PT HAS TOLERATED CLEAR LIQUIDS ALONG WITH CLEAR ENSURE. PT AMBULATES WITH STEADY GAIT IN HALLS WHEN SL'D FROM IV OTHERWISE SBA GETTING OUT OF BED. PAIN TOLERABLE WITH ONLY IV TORADOL AND OFIRMEV, PER DR RAM TRY TYLENOL PO FOR PAIN IN FUTURE NOW THAT PT TOLERATING CLEAR LIQUIDS AGAIN. PT ON RA, VSS. BT'S ACTIVE PT HAVING SMALL GREEN "MUCOUSY STOOLS", PT REPORTS PASSING GAS. NO NAUSEA OR VOMITING. CONTINUE IV MEROPENUM Q8RS.
--- NOTE | 2019-03-31 17:13 | NUR ---
1700: Report recieved from Albin COVARRUBIAS. Pt sleeping at this time.
--- NOTE | 2019-03-31 20:21 | NUR ---
IN BED, NO C/O N/V OR ABD PAIN AT THIS TIME. ON ROOM AIR. IVF INFUSING W/O PROBLEMS. TOLERATING CLEAR DIET W/O PROBLEMS. COOP WITH ASSESSMENT. MEDICATED WITH CLARITIN 10MG C/O NASL STUFFINES/SEASONAL ALLERGIES. VISITING
--- NOTE | 2019-03-31 21:22 | NUR ---
PT MEDICATED WTIH TORADOL 30MG IV C/O ABD PAIN. TOLERATING CLEAR FLUIDS, NO N/V. C/O DRY NARES AND INCREASED MOIST, NON PRODUCTIVE COUGHA ND TICKLE DOWN HIS THROAT FROM ALLERGIES. NO SOB. CALL LIGHT AT BEDSIDE
--- NOTE | 2019-03-31 21:44 | NUR ---
ROUNDED CHARGE. PATIENT IS RESTING IN BED.. PATIENT DENIES ANY COMMENTS, QUESTIONS, OR CONCERNS. RUDY PRIMARY RN IN ROOM. NO NEEDS NOTED. CALL LIGHT IN REACH.
--- NOTE | 2019-04-01 00:12 | NUR ---
RESTING, NO C/O ABD PAIN, NO N/V, TOLERATING CLEAR LIQUIDS. SCDS ON. IVF INFUSING. CALL LIGHT AT BEDSIDE
--- NOTE | 2019-04-01 02:31 | NUR ---
up to br, voided qs yellow urine. medicated with morphine 6mg IV 3-4/10 abd pain. Back to bed, tolerated well. call light at bedside
--- NOTE | 2019-04-01 06:12 | NUR ---
PT CURRENTLY AWAKE, WATCHING TV. HAS BEEN MEDICATED WITH TORADOL AND MORPHINE PER C/O ABD PAIN WITH GOOD PAIN RELIEF. GOT CLARITIN HE WAS C/O SEASONAL ALLERGIES, THROAT DISCOMFORT AND INCREASED MOIST OCASSIONAL COUGH. HAS 1 EPISODE OF PINK TINGED NASAL DRAINAGE AFTER BLOWING NOSE. GETS UP WITH MINIMUM TO NO ASSIST. TOLERATING WELL. IVF INFUSING, NO C/O ADVERSE REACTION TO ABX. TOLERATING CLEAR LIQUIDS WELL, NO N/V, NO BM BUT PASSING GAS. COOPERATIVE WITH POC. CALL LIHGT AND FLUIDS AT BEDSIDE.
--- NOTE | 2019-04-01 07:03 | NUR ---
c/o abd pain 5/10, medicated with tylenol 650mg po
--- NOTE | 2019-04-01 07:49 | NUR ---
REPORT RECEIVED FROM MARCI CARRERA. PT AWAKE AND TALKING. D5LR RUNNING.
--- NOTE | 2019-04-01 08:43 | NUR ---
ADMINISTERED MORNING MEDS. PT SL FOR SHOWER. WOULD LIKE TORADOL WHEN DONE WITH SHOWER. STATES HE DOES NOT FEEL BLOATED. RATES PAIN 5/10 IN NECK, BACK AND ABD. ABD PAIN COME AND GOES.
--- NOTE | 2019-04-01 08:56 | NUR ---
PATIENT UP TO SHOWER, INDEPENDENT. LINENS CHNAGED. CALL LIGHT IN REACH. NO FURTHER NEEDS AT THIS TIME.
--- NOTE | 2019-04-01 09:42 | NUR ---
PATIENT IN BED RESTING. CALL LIGHT IN REACH. NO FURTHER NEEDS AT THIS TIME.
--- NOTE | 2019-04-01 10:01 | NUR ---
PT AMBULATED IN REBOLLAR SEVERAL LOOPS INDEPENDENTLY. NOW BACK IN BED. ADMINISTERED TORADOL FOR 04/15 PAIN
--- NOTE | 2019-04-01 11:08 | NUR ---
PT GIVEN EDUCATION ON LOW FIBER DIET. PT READING PKT AND THEN WILL ORDER SOME LUNCH.
--- NOTE | 2019-04-01 13:45 | NUR ---
PT WALKED IN REBOLLAR EXTENSIVELY WITH . STEADY ON FEET.
--- NOTE | 2019-04-01 14:22 | NUR ---
PATIENT IN BED RESTING. IN ROOM. CALL LIGHT IN REACH. NO FURTHER NEEDS AT THIS TIME.
--- NOTE | 2019-04-01 16:20 | NUR ---
PT ASKED WHEN PAIN MEDICATION IS AVAILABLE, NOT AVAILABLE UNTIL 1845, PT SAID HE WILL BE FINE, MORE NECK PAIN AT THIS POINT.
--- NOTE | 2019-04-01 18:05 | NUR ---
ADMINISTERED SCHED. AB. PT ATE MOST OF DINNER AND HAS NO NAUSEA OR DISCOMFORT. IN ROOM. WOULD LIKE TYLENOL WHEN AVAILABLE.
--- NOTE | 2019-04-01 18:16 | NUR ---
PT WALKING IN REBOLLAR WITH .
--- NOTE | 2019-04-01 18:44 | NUR ---
PATIENT SITTING ON COUCH, IN ROOM. CALL LIGHT IN REACH. NO FURTHER NEEDS AT THIS TIME.
--- NOTE | 2019-04-01 19:12 | NUR ---
CHARGE NURSE REPORT RECEIVED FROM SACHIN. PT WITH NO NEEDS.
--- NOTE | 2019-04-01 19:20 | NUR ---
REPORT RECEIVED FROM DAY SHIFT RNALYSHA. PT ALERT AND ORIENTED RESTING IN BED. PT REQUESTING SLEEP AID HE DID NOT SLEEP MUCH LAST NIGHT. NO OTHER REQUESTS AT THIS TIME, CALL LIGHT IN REACH.
--- NOTE | 2019-04-01 19:59 | NUR ---
CALLED PER PT REQUEST OF SLEEP AID. TELEPHONE ORDER RECEIVED, VERIFIED PER READ BACK METHOD. MARCI LAM VERIFIED ORDER.
--- NOTE | 2019-04-01 20:01 | NUR ---
ASSESSMENT COMPLETE. SL IN RIGHT AC DC'D DUE TO PATIENT DISCOMFORT. RIGHT FOREARM SL FLUSHES WELL. PT C/O ABD TENDERNESS IN RLQ. NO C/O NAUSEA. CALL LIGHT IN REACH.
--- NOTE | 2019-04-01 21:36 | NUR ---
V/S AND I&O TAKEN AND CHARTED. ICE WATER AND ICE PROVIDED.
--- NOTE | 2019-04-01 23:19 | NUR ---
PT CALLED, UNABLE TO SLEEP. REQUESTED ADDITIONAL PRN SLEEP AID. ADMINISTERED WITHOUT DIFFICULTY. SCD'S IN PLACE. CALL LIGHT IN REACH.
--- NOTE | 2019-04-02 01:18 | NUR ---
PT IN BED RESTING WITH EYES CLOSED. SCD'S IN PLACE. RR EVEN AND UNLABORED. CALL LIGHT IN REACH.
--- NOTE | 2019-04-02 03:42 | NUR ---
PT UP TO BR INDEPENDENTLY. BACK TO BED. SCD'S IN PLACE. PT STATES HE'S NOT HAVING PAIN, IT IS THAT HE IS "JUST UNCOMFORTABLE." DENIES NEEDS AT THIS TIME. CALL LIGHT IN REACH.
--- NOTE | 2019-04-02 05:18 | NUR ---
PT RESTED WELL THROUGH OUT THE SHIFT. MEDICATED WITH PRN BENADRYL FOR SLEEP. PT AMBULATES INDEPENDENTLY IN HIS ROOM AND THE HALLS. LOW FIBER DIET. SCD'S WHILE IN BED.
--- NOTE | 2019-04-02 07:31 | NUR ---
BEDSIDE REPORT.. PT RESTING IN BED EYES CLOSED RR EVEN 17 BPM NO DISTRESS NOTED.
--- NOTE | 2019-04-02 08:01 | NUR ---
PATIENT SITTING ON EDGE OF BED EATING BREAKFAST. CALL LIGHT IN REACH. NO FURTHER NEEDS AT THIS TIME.
--- NOTE | 2019-04-02 08:35 | NUR ---
PT UP WATCHING ANIMALS OUT THE WINDOW.
--- NOTE | 2019-04-02 08:44 | NUR ---
PT UP TO TAKE SHOWER AT THIS TIME. PT VERBALIZED LOOKING FORWARD TO POSSIBLE DISCHARGE TODAY. HE VERBALIZED CONCERN THAT HE HAS NOT HAD A REGULAR BM SINCE .
--- NOTE | 2019-04-02 09:52 | NUR ---
PT UP AMBULATING IN HALLS
--- NOTE | 2019-04-02 09:59 | NUR ---
PATIENT UP AMBULATING IN HALLWAY EARLIER. PATIENT NOW BACK IN BED. CALL LIGHT IN REACH. NO FURTHER NEEDS AT THIS TIME.
[2019-04-02] MEDS ORDERED: METRONIDAZOLE250 MG PO (11:38)
[2019-04-02] MEDS ORDERED: CIPROFLOXACIN500 MG PO (11:38)
--- NOTE | 2019-04-02 12:19 | NUR ---
PT SITTING UP SIDE OF BED NO REQUESTS OR CONCERNS AT THIS TIME
--- NOTE | 2019-04-02 13:20 | NUR ---
DISCHARGE EDUCATION GIVEN WITH PACKET, INCLUDING EDUCATION ON LOW-FIBER DIET. FOLLOW UP APPOINTMENT, DISCUSSED WITH PATIENT AND SPOUSE SIGNS AND SYMPTOMS TO SEEK MEDICAL ATTENTION RIGHT AWAY. DISCUSSED PAIN MANAGEMENT, TO DRINK PLENTY OF WATER AND WALK REGULAR HE HAS BEEN WHILE IN HOSPITAL. PT HAD BM TODAY. DISCUSSED MEDICATIONS LAST DOSE NEXT DOSE. PT AND SPOUSE VERBALIZED UNDERSTANDING AND THAT THEY HAVE NO QUESTIONS, NAHID WITH PHARMACY AND STUDENT GAVE EDUCATION TO PATIENT ON NEW MEDICATIONS AND SIDE EFFECTS. I.V. SITE REMOVED WNL TIP INTACT. V/S STABLE
--- NOTE | 2019-04-02 13:34 | NUR ---
PT IS SITTING ON SIDE OF BED, PREPARING TO EAT LUNCH. PT IS TO BE DC'D TODAY AND MENTIONED THAT HE FEELS MUCH BETTER AND IS THANKFUL HE DIDNOT HAVE SURGERY THE MEDS SEEM TO HELP. PT AND HIS MENTIONED THAT THIS WILL BE A CHANGE IN DIET FOR THEM, BUT BOTH SEEM TO BE WILLING. PT REQUESTED PRAYER, WILL FOLLOW NEEDED
== END 2019-04-02 13:35 | disposition home or self-care (01) | DRG 392 ==
LOC: ED 20:30 → MS 20:32
PROVIDERS: ADMIT Surgery
DX: K57.20 Diverticulitis of large intestine with perforation and abscess without bleeding (principal); F43.10 Post-traumatic stress disorder, unspecified; J30.2 Other seasonal allergic rhinitis; Z88.0 Allergy status to penicillin; Z79.899 Other long term (current) drug therapy
CPT/HCPCS: 36415; 74177; 80048; 80053; 85025; 96361; 96376; 99285-25; G0378; J0131; J1644; J1885; J2185; J2270; J2405; J7030; J7120